=== PATIENT | female | born 1980 | race Caucasian/White ===

== ENCOUNTER → 2016-04-08 | Outpatient (CLI) | payer OTHER ==
[~2016-04-08] MED LIST: ACET-1256 PO; BIOT1CAP8 PO; CEPH500C2 PO; CIPR-255 PO; DOXY100C2 PO; FLV400 PO; LEVO88TA PO; LINA1CAP PO; METR-163 PO; MRLP17 PO; MULT-506 PO; NAPR-1169 PO; OYST500T47 PO; POLY335019 PO; PRENTAB26 PO; PRT40 PO; TIZA4CAP PO; ZNTT/150 PO
[2016-04-08 11:10] LABS: HEMATOCRIT 39.1 % (37-47)
[2016-04-08 12:00] LABS: URINE APPEARANCE CLEAR (CLEAR); URINE BILIRUBIN NEG (NEG); URINE COLOR YELLOW; URINE EPITHELIAL CELL AUTO >30 /lpf (0-5); URINE NITRITE NEG (NEG); URINE SPECIFIC GRAVITY 1.012 (1.000-1.030); UROBILINOGEN NEG (NEG)
[2016-04-08 12:11] LABS: GTGD 50 Grams
[2016-04-08 12:20] LABS: MANUAL MICROSCOPIC REQUIRED? NO; REVIEW REQ? NO
== END | disposition home or self-care (01) ==
LOC: C.LAB1850 09:59
PROVIDERS: ATTEND Obstetrics & Gynecology
DX: O09.523 Supervision of elderly multigravida, third trimester (principal)

== ENCOUNTER 2016-05-04 17:38 | Outpatient (CLI) | payer OTHER ==
[~2016-05-04] VITALS: Ht 154.9 cm; Wt 74.1 kg
[~2016-05-04 17:38] MED LIST changes: -ACET-1256 PO; -CEPH500C2 PO; -CIPR-255 PO; -DOXY100C2 PO; -LEVO88TA PO; -LINA1CAP PO; -METR-163 PO; -MRLP17 PO; -MULT-506 PO; -NAPR-1169 PO; -OYST500T47 PO; -PRENTAB26 PO; -PRT40 PO; -TIZA4CAP PO; -ZNTT/150 PO
[2016-05-04 18:45] VITALS: Ht 154.9 cm; Wt 74.1 kg
[2016-05-04] MEDS ORDERED: BETAMETH SOD PHOS/ACETATE IA 6 MG/ML ONE ×2 (19:05→19:15)
[2016-05-04] MEDS ORDERED: BETAMETH SOD PHOS/ACETATE IA 6 MG/ML IM STA (19:18)
[2016-05-04] MEDS ORDERED: MAGNESIUM SULFATE / WTR 1,000 ML IV ONE ×2 (19:22)
[2016-05-04] MEDS ORDERED: D5W AND LACTATED RINGERS 1,000 ML IV SCH (19:30)
[2016-05-04] MEDS ORDERED: MAGNESIUM SULFATE IV ONE (19:45)
[2016-05-04] MEDS ORDERED: MAGNESIUM SULFATE 40GM / WTR 1000 ML IV SCH (19:45)
[2016-05-04] MEDS ORDERED: WTR IV ONE (19:45)
[2016-05-04] MEDS ORDERED: LACTATED RINGER'S 1000ML 1,000 ML IV SCH (20:00)
[2016-05-04] MEDS ORDERED: AMPICILLIN IV 2,000 MG in SODIUM CHLOR 0.9% AD-VAN 100ML 100 ML IV SCH (20:00)
[2016-05-04] MEDS ORDERED: ERYTHROMYCIN IV 250 MG in SODIUM CHLORIDE 0.9% 250ML 250 ML IV SCH (20:00)
[2016-05-04 20:01] LABS: BASO % 0.2 %; BASO ABS # 0.02 K/uL (0-0.2); COMPLETE YES; EOS % 0.8 %; HEMATOCRIT 38.7 % (37-47); IG% 0.5 %; LYMPH ABS # 2.24 K/uL (1.2-3.4); MEAN CELL VOLUME 88.8 fL (80-100); MEAN CORPUSCULAR HEMOGLOBIN 31.2 pg (25-34); MEAN CORPUSCULAR HGB CONC 35.1 g/dl (32-36); MEAN PLATELET VOLUME 10.2 fL (7.4-10.4); NEUT % 73.5 %; PLATELET COUNT 186 K/uL (130-400); RED BLOOD COUNT 4.36 M/uL (4.2-5.4); WHITE BLOOD COUNT 12.44 K/uL (4.8-10.8)
[2016-05-04 20:27] LABS: CALCIUM 8.9 mg/dl (8.5-10.1); CREATININE 0.75 mg/dl (0.60-1.20); POTASSIUM 3.5 mmol/L (3.5-5.1)
[2016-07-23] MEDS ORDERED: PRENTAB26 PO (00:19)
[2016-07-23] MEDS ORDERED: LEVO88TA PO (00:20)
[2016-12-03] MEDS ORDERED: MULT-506 PO (10:53)
[2016-12-03] MEDS ORDERED: CEPH500C2 PO (10:53)
[2016-12-03] MEDS ORDERED: TIZA4CAP PO (10:53)
== END 2016-05-04 22:10 | disposition short-term general hospital (02) ==
LOC: C.OPB 17:38 → C.LD 17:38 → C.OPB 22:10
PROVIDERS: ATTEND Obstetrics & Gynecology
DX: O62.9 Abnormality of forces of labor, unspecified (principal); O99.283 Endocrine, nutritional and metabolic diseases complicating pregnancy, third trimester; Z3A.32 32 weeks gestation of pregnancy

== ENCOUNTER → 2016-07-02 | Outpatient (CLI) | payer OTHER ==
[~2016-07-02] MED LIST changes: +ACET-1256 PO; +CEPH500C2 PO; +CIPR-255 PO; +DOXY100C2 PO; +LEVO88TA PO; +LINA1CAP PO; +METR-163 PO; +MRLP17 PO; +MULT-506 PO; +NAPR-1169 PO; +OYST500T47 PO; +PRENTAB26 PO; +PRT40 PO; +TIZA4CAP PO; +ZNTT/150 PO
== END | disposition home or self-care (01) ==
LOC: C.LABSPEC 13:13
PROVIDERS: ATTEND Obstetrics & Gynecology
DX: N89.8 Other specified noninflammatory disorders of vagina (principal)

== ENCOUNTER 2016-07-23 14:44 | Emergency (ER) | payer OTHER ==
[~2016-07-23] VITALS: Ht 160 cm; Wt 71.6 kg
[~2016-07-23 14:44] MED LIST changes: -ACET-1256 PO; -CEPH500C2 PO; -CIPR-255 PO; -DOXY100C2 PO; -LINA1CAP PO; -METR-163 PO; -MRLP17 PO; -MULT-506 PO; -NAPR-1169 PO; -OYST500T47 PO; -PRT40 PO; -TIZA4CAP PO; -ZNTT/150 PO
[2016-07-23 14:47] VITALS: Ht 160 cm; Wt 71.6 kg
[2016-07-23] MEDS ORDERED: PIPERACILL/TAZOBAC IV 4.5 GM in DEXTROSE 5% 100ML 100 ML IV STA (15:17)
[2016-07-23] MEDS ORDERED: ACETAMINOPHEN 500 MG TAB PO STA (15:17)
[2016-07-23] MEDS ORDERED: VANCOMYCIN INJ 1,750 MG in SODIUM CHLORIDE 0.9% 250ML 250 ML IV STA (15:17)
[2016-07-23] MEDS ORDERED: SODIUM CHLORIDE 0.9% 1000ML 2,000 ML IV STA (15:17)
[2016-07-23] MEDS ORDERED: OYST500T47 PO (15:22)
[2016-07-23] MEDS ORDERED: VANCOMYCIN INJ 1,750 MG in SODIUM CHLORIDE 0.9% 500ML 500 ML IV STA (15:25)
--- NOTE | 2016-07-23 15:46 | EMERGENCY ROOM VISIT NOTE ---
History First contact with patient: 15:03 Chief Complaint: FEVER Stated Complaint: FEVER, BELLY AND BACK PAIN History of Present Illness The patient is a 35 year old female who presents to the Emergency Room with complaints of fevers, chills, body aches, with abdominal and lower back pain. Patient s/p vaginal delivery 2 months ago, patient states she had premature rupture of membranes at 32 weeks and was kept at [facility] and delivered at 34 weeks. She subsequently developed endometritis and was admitted at [facility] [place] for this. She is history of 2 miscarriages. Patient states she has had persistent abdominal pain with fevers and chills since being discharged, has been on a course of intravaginal antibiotics which she states she completed about 1-2 weeks ago, but is not feeling any better. Over the past few days, she has had increased vaginal bleeding and pain. She was seen at her OBs office today and sent to the ER for further evaluation. She is normally followed by Dr. Tompkins. She has not taken anything today for fevers or pain, but states she has been taking Tylenol at times with minimal relief. She has associated nausea and dizziness/fatigue with this. She denies chest pain, shortness of breath, palpitations, syncope, vomiting or diarrhea, urinary symptoms. She states she has not been sexually active since her delivery. Review of Systems GENERAL: + Fevers, chills, malaise, fatigue. Denies unintentional weight changes. HEENT: + Dizziness. Denies visual problems, hearing loss, tinnitus. Denies difficulty swallowing or oral lesions. PULMONARY: Denies cough, shortness of breath, sputum production or hemoptysis. CARDIOVASCULAR: Denies chest pain, palpitations, dyspnea on exertion, orthopnea or peripheral edema. GASTROINTESTINAL: + Abdominal pain, nausea. Denies diarrhea, constipation, vomiting. GENITOURINARY: Denies dysuria, frequency, urgency or nocturia. + Vaginal bleeding with small clots. NEUROLOGIC: Denies history of epilepsy, CVA, TIA or chronic headaches. MUSCULOSKELETAL: Denies history of joint tenderness/swelling. SKIN: Denies rashes or lesions. PSYCHIATRIC: Denies history of depression or mental illness. ENDOCRINE: Denies history of diabetes, thyroid disorders, abnormal hair growth or sexual dysfunction. Past Medical/Surgical History Medical Problems: (1) CMV (cytomegalovirus infection) (2) (3) premature rupture of membranes (PPROM) with unknown onset of labor (4) Toxoplasmosis Family History Diabetes mellitus Heart disease Hypertension Social History Smoking Status: Never Smoker Marital Status: Housing Status: lives with family Occupation Status: unemployed Current/Historical Medications Scheduled Ciprofloxacin Hcl (Cipro), 500 MG PO BID Levothyroxine Sodium (Synthroid), 88 MCG PO DAILY Metronidazole (Flagyl), 500 MG PO TID Multivit/Min/Iron/Fol Ac/Pren ( Vitamin), 1 TAB PO DAILY Oyster Shell (Calcium), 500 MG PO DAILY Scheduled PRN Naproxen (Naprosyn), 500 MG PO BID PRN for Pain Allergies Coded Allergies: Baclofen (Verified Allergy, Unknown, ITCHING AND RASH, 11/23/15) Carbamazepine (Verified Allergy, Unknown, RASH AND ITCHING, 11/23/15) Physical Exam Vital Signs Date Time Temp Pulse Resp B/P Pulse Ox O2 Delivery O2 Flow Rate FiO2 07/23/16 20:44 36.8 65 15 106/60 96 07/23/16 18:44 65 96 07/23/16 18:16 36.8 96 106/60 07/23/16 18:14 72 95 07/23/16 18:07 106/60 07/23/16 16:26 105/69 07/23/16 16:14 88 15 07/23/16 16:12 79 07/23/16 15:55 88 105/55 96 Room Air 07/23/16 15:52 105/58 07/23/16 14:47 37.7 123 16 124/78 97 Room Air Physical Exam CONSTITUTIONAL: Pale for ethnicity. Moderately dehydrated. No acute distress. Well appearing and well nourished. Alert and oriented X 4 with normal affect. HEENT: Normocephalic, atraumatic. Pupils equal, round and reactive to light, EOMI. TMs normal. Pharynx normal. NECK: Supple, full active range of motion without discomfort. RESPIRATORY: Clear to auscultation bilaterally with no wheezing, crackles, rhonchi or stridor. Equal expansion bilaterally. CARDIOVASCULAR: Tachycardia. Regular rhythm with no murmurs, rubs or gallops. Normal peripheral perfusion. No edema. GASTROINTESTINAL: Moderately tender diffuse abdomen, most tender in the suprapubic region. Soft, nondistended. Bowel sounds present in all quadrants. GENITOURINARY: Normal external exam. There is no active bleeding within the vaginal canal. Moderate clear discharge noted from the cervix. No malodorous or purulent discharge. Cervical os is fingertip open. Cervix appears excoriated. Positive cervical motion tenderness. Diffuse uterine and adnexal tenderness. MUSCULOSKELETAL: Full range of motion of all joints without discomfort. INTEGUMENTARY: No rash or other significant dermatologic conditions noted. NEUROLOGIC: Cranial nerves II-XII grossly intact. No focal neurologic deficits noted. Medical Decision & Procedures ER Provider Diagnostic Interpretation: ABDOMEN AND PELVIS CT WITH IV CONTRAST CT DOSE: 327.11 mGy.cm HISTORY: Fever recent endometritis, fevers, eval intra-abdominal infection TECHNIQUE: Multiaxial CT images of the abdomen and pelvis were performed following the use of intravenous contrast. COMPARISON STUDY: 04/26/2014 FINDINGS: Lung bases are clear. Liver spleen and pancreas are unremarkable. Kidneys enhance uniformly. Bowel pattern is nonobstructive. There has been interval appendectomy. There are bilateral ovarian follicular cysts none of which exceed 1.5 cm. No evidence of bowel distention. IMPRESSION: 1. Interval appendectomy. 2. Nonobstructive bowel pattern. 3. Small bilateral ovarian follicular cysts. Laboratory Results 07/23/16 15:30 Red Blood Count 4.83, Mean Corpuscular Volume 88.4, Mean Corpuscular Hemoglobin 30.6, Mean Corpuscular Hemoglobin Concent 34.7, Mean Platelet Volume 10.4, Neutrophils (%) (Auto) 77.8, Lymphocytes (%) (Auto) 10.1, Monocytes (%) (Auto) 11.3, Eosinophils (%) (Auto) 0.5, Basophils (%) (Auto) 0.1, Neutrophils # (Auto ) 7.81, Lymphocytes # (Auto) 1.02, Monocytes # (Auto) 1.14, Eosinophils # (Auto ) 0.05, Basophils # (Auto) 0.01 07/23/16 15:30 Test 07/23/16 15:30 07/23/16 15:41 07/23/16 15:45 07/23/16 16:10 White Blood Count 10.05 K/uL (4.8-10.8) Red Blood Count 4.83 M/uL (4.2-5.4) Hemoglobin 14.8 g/dL (12.0-16.0) Hematocrit 42.7 % (37-47) Mean Corpuscular Volume 88.4 fL (80-100) Mean Corpuscular Hemoglobin 30.6 pg (25-34) Mean Corpuscular Hemoglobin Concent 34.7 g/dl (32-36) Platelet Count 223 K/uL (130-400) Mean Platelet Volume 10.4 fL (7.4-10.4) Neutrophils (%) (Auto) 77.8 % Lymphocytes (%) (Auto) 10.1 % Monocytes (%) (Auto) 11.3 % Eosinophils (%) (Auto) 0.5 % Basophils (%) (Auto) 0.1 % Neutrophils # (Auto) 7.81 K/uL (1.4-6.5) Lymphocytes # (Auto) 1.02 K/uL (1.2-3.4) Monocytes # (Auto) 1.14 K/uL (0.11-0.59) Eosinophils # (Auto) 0.05 K/uL (0-0.5) Basophils # (Auto) 0.01 K/uL (0-0.2) RDW Standard Deviation 39.7 fL (36.4-46.3) RDW Coefficient of Variation 12.4 % (11.5-14.5) Immature Granulocyte % (Auto) 0.2 % Immature Granulocyte # (Auto) 0.02 K/uL (0.00-0.02) Est Creatinine Clear Calc Drug Dose 88.0 ml/min Estimated GFR () 104.4 Estimated GFR (Non- 90.1 BUN/Creatinine Ratio 23.2 (10-20) Calcium Level 9.2 mg/dl (8.5-10.1) Total Bilirubin 0.9 mg/dl (0.2-1) Direct Bilirubin 0.2 mg/dl (0-0.2) Aspartate Amino Transf (AST/SGOT) 29 U/L (15-37) Alanine Aminotransferase (ALT/SGPT) 46 U/L (12-78) Alkaline Phosphatase 66 U/L (45-117) Total Protein 7.5 gm/dl (6.4-8.2) Albumin 4.1 gm/dl (3.4-5.0) Bedside Lactic Acid Venous 0.93 mmol/L (0.90-1.70) Bedside Hemoglobin 15.0 g/dl (12.0-16.0) Bedside Hematocrit 44 % (37-47) Bedside Sodium 140 mEq/L (135-144) Bedside Potassium 3.8 mEq/L (3.3-5.0) Bedside Chloride 102 mEq/L (101-112) Bedside Total CO2 25 mEq/l (24-31) Anion Gap 19.0 mmol/L (16-25) Bedside Blood Urea Nitrogen 20 mg/dl (7-18) Bedside Creatinine 0.8 mg/dl (0.6-1.3) Bedside Glucose (other) 96 mg/dl (70-99) Bedside Ionized Calcium ([place]) 1.09 mmol/l (1.12-1.32) Test 07/23/16 16:15 07/23/16 16:37 Urine Color YELLOW Urine Appearance CLEAR (CLEAR) Urine pH 6.0 (4.5-7.5) Urine Specific [place] 1.015 (1.000-1.030) Urine Protein NEG (NEG) Urine Glucose (UA) NEG (NEG) Urine Ketones NEG (NEG) Urine Occult Blood TRACE (NEG) Urine Nitrite NEG (NEG) Urine Bilirubin NEG (NEG) Urine Urobilinogen NEG (NEG) Urine Leukocyte Esterase NEG (NEG) Prothrombin Time 10.6 SECONDS (9.0-12.0) Prothromb Time International Ratio 1.0 (0.9-1.1) Activated Partial Thromboplast Time 25.4 SECONDS (21.0-31.0) Partial Thromboplastin Ratio 1.0 Medications Administered Medications (Trade) Dose Ordered Sig/Kaur Route Start Time Stop Time Status Last Admin Dose Admin Sodium Chloride 2,000 ml @ 999 mls/hr Q2H1M STAT IV 07/23/16 15:17 07/23/16 17:17 DC 07/23/16 15:17 999 MLS/HR Piperacillin Sod/ Tazobactam Sod/ Dextrose (Zosyn Iv/D5 100ml) 120 ml @ 200 mls/hr NOW STAT IV 07/23/16 15:17 07/23/16 15:52 DC 07/23/16 15:17 200 MLS/HR Acetaminophen 1000 mg 1,000 mg NOW STAT PO 07/23/16 15:17 07/23/16 15:23 DC 07/23/16 15:17 1,000 MG Vancomycin HCl/ Sodium Chloride (Vancomycin Inj/ Nss 500ml) 535 ml @ 200 mls/hr ONE STAT IV 07/23/16 15:25 07/23/16 18:05 DC 07/23/16 15:25 200 MLS/HR Ketorolac Tromethamine (Toradol Inj) 15 mg NOW STAT IV 07/23/16 18:47 07/23/16 18:49 DC 07/23/16 18:47 15 MG ED Course Patient evaluated at bedside, history and physical exam performed. Orders placed at bedside for infection workup including labs, urinalysis, blood and urine cultures, IV fluid bolus, IV vancomycin and Zosyn for broad coverage given suspected infection. I discussed the patient with Dr. Hutchison, who agrees with my assessment and plan. Pelvic exam performed and endocervical cultures sent to the lab. Spoke with Dr. Morales, who agrees with plan to treat for possible persistent endometritis, recommends Cipro/Flagyl and will follow up in clinic early next week. CT reviewed, no acute abnormality. Pt reassessed, states she is feeling much better after Toradol. Medical Decision CC: Patient presenting with complaint of fever/chills, abdominal pain. Interpretation of Labs: No significant abnormalities, most notably no leukocytosis and normal lactic acid. Differential Diagnosis: Includes, but not limited to endometritis, intra- abdominal infection or abscess, sepsis, bacteremia, UTI, PID. Summary: Patient is alert and oriented, no acute distress but appears uncomfortable and unwell. She has moderate diffuse tenderness of the abdomen most tender over the uterus. Given her history of recent endometritis, I am concerned for recurrence or poor resolution of this infection. Infection workup initiated and broad-spectrum IV antibiotics ordered. Pelvic exam with exquisite cervical motion tenderness and cervical excoriation, os is open to fingertip with only. No malodorous or purulent discharge. Endocervical culture sent including aerobic, anaerobic, chlamydia, gonorrhea, trichomoniasis. Blood and urine cultures also sent. Labs are fairly unremarkable, previous mild leukocytosis is now resolved. CT shows no acute abnormalities. I did speak with Dr. Morales regarding the patient, she recommends treating for possible persistent endometritis with Cipro and Flagyl, will follow up in clinic. Patient reassessed multiple times throughout ED stay, she is much improved after IV fluids and Toradol. Tachycardia is also resolved after fluids. Patient was discussed with Dr. Hutchison, who agrees with my assessment and disposition. Impression Primary Impression: Pelvic pain Departure Information Dispostion Home / Self-Care Condition GOOD Prescriptions Naproxen (Naprosyn) 500 Mg Tab 500 MG PO BID Y for Pain for 14 Days, #28 TAB Prov: Avril Medellin MERRITT 07/23/16 Metronidazole (Flagyl) 500 Mg Tab 500 MG PO TID for Pain for 7 Days, #21 TAB For Initial Treatment Prov: Avril MedellinMERRITT Ngo 07/23/16 Ciprofloxacin Hcl (CIPRO) 500 Mg Tab 500 MG PO BID for 7 Days, #14 TAB Prov: Avril Medellin, MERRITT 07/23/16 Referrals [facility] (PCP) Patient Instructions ED Endometritis Obstetric, [facility] Additional Instructions Please follow-up with your OB office in the next few days. Call tomorrow morning to schedule an appointment. Take the antibiotics as prescribed. Take the Naprosyn twice a day as needed for pain. These prescriptions were sent to the [facility] pharamacy for you. You may use a heating pad to your abdomen for comfort. Do not breast feed your baby while you are taking the antibiotics. You should solely feed with the formula you have been using. Talk to you accountant budget about any feeding questions. Use your breast pump to continue pumping your breast milk so your supply does not dry up. Please return to the ER for worsening symptoms, including severe pain, persistent heavy bleeding (soaking through 2 or more pads/tampons per hour), fever/chills, severe dizziness or passing out, or any other concerns.
--- NOTE | 2016-07-23 15:51 | DIAGNOSTIC IMAGING REPORT ---
CHEST ONE VIEW PORTABLE CLINICAL HISTORY: Fever. Sepsis. COMPARISON STUDY: Chest radiograph 07/03/2015. FINDINGS: Lung volumes are normal. Lungs are clear. There is no pneumothorax or pleural effusion. Cardiac size is normal. Mediastinal contours are normal. There is no evidence of pulmonary edema. IMPRESSION: No acute cardiopulmonary findings. Electronically signed by: Walt You M.D. 07/23/2016 3:50 PM Dictated Date/Time: 07/23/2016 3:49 PM
[2016-07-23 15:53] LABS: BASO % 0.1 %; BASO ABS # 0.01 K/uL (0-0.2); COMPLETE YES; EOS % 0.5 %; HEMATOCRIT 42.7 % (37-47); IG% 0.2 %; LYMPH % 10.1 %; LYMPH ABS # 1.02 K/uL (1.2-3.4); MEAN CELL VOLUME 88.4 fL (80-100); MEAN CORPUSCULAR HEMOGLOBIN 30.6 pg (25-34); MEAN CORPUSCULAR HGB CONC 34.7 g/dl (32-36); MEAN PLATELET VOLUME 10.4 fL (7.4-10.4); MONO % 11.3 %; NEUT % 77.8 %; PLATELET COUNT 223 K/uL (130-400); RED BLOOD COUNT 4.83 M/uL (4.2-5.4); WHITE BLOOD COUNT 10.05 K/uL (4.8-10.8)
[2016-07-23 16:03] LABS: ISTAT CREATININE 0.8 mg/dl (0.6-1.3); ISTAT IONIZED CALCIUM 1.09 mmol/l (1.12-1.32)
[2016-07-23 16:13] LABS: BUN/CREATININE RATIO 23.2 (10-20); CALCIUM 9.2 mg/dl (8.5-10.1); CREATININE 0.83 mg/dl (0.60-1.20); POTASSIUM 3.7 mmol/L (3.5-5.1)
[2016-07-23] MEDS ORDERED: OPTIRAY 320 IV PRN (16:30)
[2016-07-23 16:56] LABS: URINE APPEARANCE CLEAR (CLEAR); URINE BILIRUBIN NEG (NEG); URINE NITRITE NEG (NEG); URINE SPECIFIC GRAVITY 1.015 (1.000-1.030); UROBILINOGEN NEG (NEG)
[2016-07-23 17:05] LABS: REVIEW REQ? NO
[2016-07-23 17:06] LABS: MANUAL MICROSCOPIC REQUIRED? NO; URINE COLOR YELLOW
[2016-07-23 17:07] LABS: PROTHROMBIN TIME (PATIENT) 10.6 SECONDS (9.0-12.0)
--- NOTE | 2016-07-23 17:17 | DIAGNOSTIC IMAGING REPORT ---
ABDOMEN AND PELVIS CT WITH IV CONTRAST CT DOSE: 327.11 mGy.cm HISTORY: Fever recent endometritis, fevers, eval intra-abdominal infection TECHNIQUE: Multiaxial CT images of the abdomen and pelvis were performed following the use of intravenous contrast. COMPARISON STUDY: 04/26/2014 FINDINGS: Lung bases are clear. Liver spleen and pancreas are unremarkable. Kidneys enhance uniformly. Bowel pattern is nonobstructive. There has been interval appendectomy. There are bilateral ovarian follicular cysts none of which exceed 1.5 cm. No evidence of bowel distention. IMPRESSION: 1. Interval appendectomy. 2. Nonobstructive bowel pattern. 3. Small bilateral ovarian follicular cysts. Electronically signed by: Geovani Sanchez M.D. 07/23/2016 5:16 PM Dictated Date/Time: 07/23/2016 5:11 PM
[2016-07-23] MEDS ORDERED: KETOROLAC TROMETHAMINE 30 MG/ML VIAL IV STA (18:47)
[2016-07-23] MEDS ORDERED: NAPR-1169 PO (19:52)
[2016-07-23] MEDS ORDERED: METR-163 PO (19:52)
[2016-07-23] MEDS ORDERED: CIPR-255 PO (19:52)
[2016-07-23 20:44] VITALS: BP 106/60; PULSE 65; TEMP 36.8; O2SAT 96
[2016-07-28 04:25] LABS: CHLAMYDIA TRACH RNA*** NOT DETECTED (NOT DETECTED); GC (NEIS GONORRHOEAE)RNA** NOT DETECTED (NOT DETECTED); TRICHOMONAS VAGINALIS RNA** NOT DETECTED (NOT DETECTED)
[2016-12-03] MEDS ORDERED: CEPH500C2 PO (10:53)
[2016-12-03] MEDS ORDERED: MULT-506 PO (10:53)
[2016-12-03] MEDS ORDERED: TIZA4CAP PO (10:53)
== END 2016-07-23 20:45 | disposition home or self-care (01) ==
LOC: C.EDB 14:45
DX: R10.2 Pelvic and perineal pain (principal); Z86.19 Personal history of other infectious and parasitic diseases; Z79.899 Other long term (current) drug therapy; Z88.8 Allergy status to other drugs, medicaments and biological substances; Z83.3 Family history of diabetes mellitus; Z82.49 Family history of ischemic heart disease and other diseases of the circulatory system

== ENCOUNTER 2016-07-28 00:03 | Observation (INO) | payer OTHER ==
[2016-07-28] VITALS (7 sets, daily range): BP systolic 84–155; BP diastolic 41–68; PULSE 55–64; TEMP 36.5–36.8; O2SAT 96–98; Ht 160 cm; Wt 72.0 kg
[~2016-07-28] VITALS: Ht 160 cm; Wt 72.0 kg
[~2016-07-28 00:03] MED LIST changes: -BIOT1CAP8 PO; +CIPR-255 PO; -FLV400 PO; +METR-163 PO; +NAPR-1169 PO; +OYST500T47 PO; -POLY335019 PO
[2016-07-28] MEDS ORDERED: SODIUM CHLORIDE 0.9% 1000ML 1,000 ML IV STA ×2 (00:24→04:36)
--- NOTE | 2016-07-28 00:29 | EMERGENCY ROOM VISIT NOTE ---
History Report prepared by Ciera: Mg Tavares Under the Supervision of: Dr. Jonah Randolph M.D. First contact with patient: 00:17 Chief Complaint: ABDOMINAL PAIN Stated Complaint: CHILLS, NAUSEA, ABD PAIN History of Present Illness The patient is a 35 year old female who presents to the Emergency Room with complaints of worsening pelvic pain for the past two weeks. The patient delivered her first child vaginally two months ago P:1. She spent two weeks in the hospital prior to the delivery. The patient was diagnosed with endometritis two weeks ago. She is being treated with Cipro, Flagyl, and Doxycycline. She is also taking Tylenol for pain. She has had worsening pelvic pain since then. The patient also had vaginal bleeding, which initially resolved but started again yesterday. The pelvic pain is rated 10/10 in severity and does not radiate to her back. The patient also complains of chills and nausea. She denies fevers, chest pain, shortness of breath, vomiting, diarrhea, leg swelling, or rashes. She has not been eating well. The patient was seen by the [facility] earlier today where she had a pelvic examination. Source of History: patient Onset: two weeks ago Position: other (pelvic) Symptom Intensity: 10/10 Timing: worsening Associated Symptoms: + chills, + nausea, No SOB, No back pain, No chest pain , No diarrhea, No fevers, No rash, No vomiting Review of Systems See HPI for pertinent positives & negatives. A total of 10 systems reviewed and were otherwise negative. Past Medical & Surgical Medical Problems: (1) CMV (cytomegalovirus infection) (2) (3) premature rupture of membranes (PPROM) with unknown onset of labor (4) Toxoplasmosis Family History Diabetes mellitus Heart disease Hypertension Social History Smoking Status: Never Smoker Marital Status: Housing Status: lives with family Occupation Status: unemployed Current/Historical Medications Scheduled Ciprofloxacin Hcl (Cipro), 500 MG PO BID Doxycycline Hyclate (Vibramycin), 100 MG PO BID Levothyroxine Sodium (Synthroid), 88 MCG PO DAILY Metronidazole (Flagyl), 500 MG PO TID Multivit/Min/Iron/Fol Ac/Pren ( Vitamin), 1 TAB PO DAILY Oyster Shell (Calcium), 500 MG PO DAILY Scheduled PRN Acetaminophen (Tylenol), 1,000 MG PO Q4 PRN for Pain or Fever Naproxen (Naprosyn), 500 MG PO BID PRN for Pain Ranitidine (Zantac), 150 MG PO BID PRN for Nausea Allergies Coded Allergies: Baclofen (Verified Allergy, Unknown, ITCHING AND RASH, 07/28/16) Carbamazepine (Verified Allergy, Unknown, RASH AND ITCHING, 07/28/16) Physical Exam Vital Signs Date Time Temp Pulse Resp B/P Pulse Ox O2 Delivery O2 Flow Rate FiO2 07/28/16 06:03 66 16 108/57 97 Room Air 07/28/16 03:32 86 18 107/63 97 Room Air 07/28/16 02:56 61 20 114/56 96 Room Air 07/28/16 01:00 66 18 101/64 98 Room Air 07/28/16 00:08 36.6 65 18 116/73 98 Room Air Physical Exam GENERAL: Patient is uncomfortable appearing and in moderate distress. HEENT: No acute trauma, normocephalic atraumatic, mucous membranes are dry, no nasal congestion, no scleral icterus. NECK: No stridor, no adenopathy, no meningismus, trachea is midline. LUNGS: No dyspnea. Clear to auscultation and equal bilaterally. No wheeze, no rhonchi. HEART: Regular rate and rhythm. No murmurs, rubs, gallops appreciated. ABDOMEN: Soft, tender to palpation over the suprapubic and adnexal regions, bowel sounds positive, no masses appreciated, no peritonitis. BACK: No midline tenderness, no CVA tenderness EXTREMITIES: Normal motion all extremities, no cyanosis, no edema. NEUROLOGIC: Alert and oriented, no acute motor or sensory deficits, no focal weakness, cranial nerves grossly intact. SKIN: No rash, no jaundice, no diaphoresis. Medical Decision & Procedures ER Provider Diagnostic Interpretation: Radiology results and stated below per my review and radiologist interpretation: CT ABDOMEN & PELVIS: Comparison to CT A&P 04/26/14. Clear lung bases. Liver, gallbladder, pancreas, adrenals, and kidneys within normal limits. Stable appearance of spleen with adjacent splenules. Aorta and IVC normal. S/p appendectomy. No evidence of bowel obstruction. Small bilateral adnexal cysts. Normal appearance of the uterus and urinary bladder. No significant free pelvic fluid. No acute osseous findings. Radiologist: Ricki Shetty MD. Laboratory Results 07/28/16 00:45 Red Blood Count 4.62, Mean Corpuscular Volume 87.7, Mean Corpuscular Hemoglobin 29.9, Mean Corpuscular Hemoglobin Concent 34.1, Mean Platelet Volume 9.9, Neutrophils (%) (Auto) 60.9, Lymphocytes (%) (Auto) 28.4, Monocytes (%) (Auto) 8.1, Eosinophils (%) (Auto) 2.2, Basophils (%) (Auto) 0.3, Neutrophils # (Auto) 5.28, Lymphocytes # (Auto) 2.46, Monocytes # (Auto) 0.70, Eosinophils # (Auto) 0.19, Basophils # (Auto) 0.03 07/28/16 00:45 Test 07/28/16 00:45 07/28/16 00:51 07/28/16 01:27 White Blood Count 8.67 K/uL (4.8-10.8) Red Blood Count 4.62 M/uL (4.2-5.4) Hemoglobin 13.8 g/dL (12.0-16.0) Hematocrit 40.5 % (37-47) Mean Corpuscular Volume 87.7 fL (80-100) Mean Corpuscular Hemoglobin 29.9 pg (25-34) Mean Corpuscular Hemoglobin Concent 34.1 g/dl (32-36) Platelet Count 248 K/uL (130-400) Mean Platelet Volume 9.9 fL (7.4-10.4) Neutrophils (%) (Auto) 60.9 % Lymphocytes (%) (Auto) 28.4 % Monocytes (%) (Auto) 8.1 % Eosinophils (%) (Auto) 2.2 % Basophils (%) (Auto) 0.3 % Neutrophils # (Auto) 5.28 K/uL (1.4-6.5) Lymphocytes # (Auto) 2.46 K/uL (1.2-3.4) Monocytes # (Auto) 0.70 K/uL (0.11-0.59) Eosinophils # (Auto) 0.19 K/uL (0-0.5) Basophils # (Auto) 0.03 K/uL (0-0.2) RDW Standard Deviation 39.9 fL (36.4-46.3) RDW Coefficient of Variation 12.5 % (11.5-14.5) Immature Granulocyte % (Auto) 0.1 % Immature Granulocyte # (Auto) 0.01 K/uL (0.00-0.02) Erythrocyte Sedimentation Rate 12 mm/hr (0-21) Anion Gap 8.0 mmol/L (3-11) Est Creatinine Clear Calc Drug Dose 61.2 ml/min Estimated GFR () 66.9 Estimated GFR (Non- 57.7 BUN/Creatinine Ratio 16.3 (10-20) Calcium Level 8.8 mg/dl (8.5-10.1) C-Reactive Protein 1.38 mg/dl (0-0.29) Thyroid Stimulating Hormone (TSH) 1.800 uIu/ml (0.300-4.500) Free Thyroxine 1.28 ng/dl (0.80-1.60) Human Chorionic Gonadotropin, Qual NEG (NEG) Bedside Lactic Acid Venous 0.51 mmol/L (0.90-1.70) Urine Color YELLOW Urine Appearance CLEAR (CLEAR) Urine pH 5.0 (4.5-7.5) Urine Specific [place] 1.007 (1.000-1.030) Urine Protein NEG (NEG) Urine Glucose (UA) NEG (NEG) Urine Ketones NEG (NEG) Urine Occult Blood NEG (NEG) Urine Nitrite NEG (NEG) Urine Bilirubin NEG (NEG) Urine Urobilinogen NEG (NEG) Urine Leukocyte Esterase NEG (NEG) Urine WBC (Auto) 0 /hpf (0-5) Urine RBC (Auto) 0-4 /hpf (0-4) Urine Hyaline Casts (Auto) 0 /lpf (0-5) Urine Epithelial Cells (Auto) 0-5 /lpf (0-5) Urine Bacteria (Auto) NEG (NEG) Urine Test NEG (NEG) Laboratory results as reviewed by me. Medications Administered Medications (Trade) Dose Ordered Sig/Kaur Route Start Time Stop Time Status Last Admin Dose Admin Sodium Chloride (Nss 1000ml) 1,000 ml @ 999 mls/hr Q1H1M STAT IV 07/28/16 00:24 07/28/16 01:24 DC 07/28/16 00:57 999 MLS/HR Ondansetron HCl (Zofran Inj) 4 mg NOW STAT IV 07/28/16 00:41 07/28/16 00:42 DC 07/28/16 00:57 4 MG Morphine Sulfate (MoRPHine SULFATE INJ) 4 mg STK-MED ONCE .ROUTE 07/28/16 00:50 07/28/16 00:51 DC 07/28/16 00:58 4 MG Morphine Sulfate (MoRPHine SULFATE INJ) 2 mg STK-MED ONCE .ROUTE 07/28/16 00:50 07/28/16 00:51 DC 07/28/16 00:59 2 MG Ondansetron HCl (ZOFRAN ODT 4MG Home Pack) 1 homepack UD ONCE PO 07/28/16 03:15 07/28/16 03:16 DC 07/28/16 03:31 1 HOMEPACK Lorazepam (Ativan Tab) 1 mg NOW STAT SL 07/28/16 04:12 07/28/16 04:13 DC 07/28/16 04:18 1 MG Prochlorperazine Edisylate (Compazine Inj) 10 mg NOW STAT IV 07/28/16 04:36 07/28/16 04:38 DC 07/28/16 05:32 10 MG Diphenhydramine HCl 50 mg 50 mg NOW STAT IV 07/28/16 04:36 07/28/16 04:38 DC 07/28/16 05:35 50 MG Sodium Chloride (Nss 1000ml) 1,000 ml @ 999 mls/hr Q1H1M STAT IV 07/28/16 04:36 07/28/16 05:36 DC 07/28/16 05:37 999 MLS/HR ED Course 0020: The patient was evaluated in room B7. A complete history and physical exam was performed. 0024: NSS 1000 ml @ 999 mls/hr. 0041: Zofran 4 mg IV, Morphine Sulfate 6 mg IV. 0144: Discussed the case with Dr. Quintanilla, Business Analysis Specialist. The patient will be evaluated in the ED. 0300: Dr Jeni Quintanilla feels that there is no evidence of endometritis. He does not feel that she needs inpatient admission nor to be on the antibiotics. The patient requested morphine and extensive endocrine testing which we are unable to do in the ED. 0315: Oxycodone HCl IR 5 mg PO homepack, Zofran Odt 4 mg PO homepack. 0412: Ativan 1 mg SL. 0436: NSS 1000 ml @ 999 mls/hr, Benadryl 50 mg IV, Compazine 10 mg IV. 0437: The patient refuses to leave the ED. She is dry heaving and spitting up saliva. She is demanding more pain medications. I discussed further workup and she would like another CT scan of her abdomen. 0530: Nursing is still attempting to establish a new IV. 0615: The patient is at CT scan. 0645: Discussed the case with the [facility]. The patient will be evaluated. 0650: Patient states that she is still having abdominal pain, however she is somnolent and has to be awoken from sleep. Medical Decision Differential: Appendicitis, Ovarian Torsion, PID, Tubo-ovarian Abscess, Intrauterine , Ectopic , Endometriosis, amongst other pathologies entertained. 35 yr old female with vaginal delivery 11 wks ago and post endometritis who was seen 5 days ago here for concern of endometritis. She arrives today stating she wishes inpatient treatment and IV abx. She does not feel PO abx work for her. Admits lower abdo pain had initially improved but worsened over last 24 hours. Seen by [facility] earlier in day and added doxy to Cipro/Flagyl she is already on. She did have vaginal cx last week with + Ecoli which was susceptible to cipro. She refused pelvic exam by me. She has vague suprapubic TTP. Pain/Nausea meds given her reported symptoms though exam benign. Labs ordered which are essentially normal. She has normal WBC, normal ESR, and faintly positive (non-specific) CRP. She is not febrile, vitals are normal and she is stable for several hours. [facility] down to evaluate and feel no emergent gynecological issue and that she is in no need of inpatient treatment from there standpoint. Furthermore they suggest stopping all abx as they may be causing her symptoms. Would not be unreasonable to be flagyl causing her to feel so ill. Patient placed for discharge though she is not very happy with me nor [facility] that we will not admit her. Began forceable dry heaving when told she was to be discharged, drank soda rapidly and then vomited it up immediately. Given Zofran /Ativan and still saying nauseous and no better. Given change in symptoms we opted for placing another IV, given Comp/Benadryl for nausea and will repeat CT scan. CT scan shows no change from just a few days ago. Patient still saying nauseous and pain though she had to be awoken to even tell me this and is clearly in no distress. I can find no acute cause of her symptoms. I made it clear to her that I feel she would be able to go home, but she states she is unable to do this. Consults Time Called: 129 Consulting Physician: Dr. Quintanilla, Business Analysis Specialist Returned Call: [phone] The patient will be evaluated in the ED. Additional Consults: Time Called: [phone] Consulted Physician: [facility] Returned Call: [phone] Additional Comments: The patient will be evaluated. Impression Primary Impression: Pelvic pain Additional Impressions: Nausea Fatigue Scribe Attestation The scribe's documentation has been prepared under my direction and personally reviewed by me in its entirety. I confirm that the note above accurately reflects all work, treatment, procedures, and medical decision making performed by me. Departure Information Dispostion Being Evaluated By Hospitalist Referrals [facility] (PCP) Forms Call Back Authorization, HOME CARE DOCUMENTATION FORM, IMPORTANT VISIT INFORMATION Patient Instructions My [facility] Additional Instructions Please follow up with [facility] for further examination. You can discuss with them having endocrine testing along with other investigations, or possibly even setting up further appointments with [facility]. If you feel you are at risk of harming yourself or others, call 911 or return to emergency department. welt stitch cleaner Feels that you should stop all of your antibiotics. It is possible you are feeling ill because of these medications. Return if fevers, vomiting, passing out, severe pain or other concerns. You have been examined and treated today on an emergency basis only. This is not a substitute for, or an effort to provide, complete comprehensive medical care. It is impossible to recognize and treat all injuries or illnesses in a single emergency department visit. It is therefore important that you follow up closely with your Primary Physician or [facility]. Call as soon as possible for an appointment so you can review all labs, imaging and other testing that you had. Return to Emergency Department, call 911 or seek immediate medical attention if you feel your symptoms are worsening. Problem Qualifiers Additional Impressions: Fatigue Fatigue type: unspecified Qualified Codes: R53.83 - Other fatigue
[2016-07-28] MEDS ORDERED: MoRPHine SULFATE 10 MG/ML CARP/VIAL IV STA (00:41)
[2016-07-28] MEDS ORDERED: ONDANSETRON INJ 2 MG/ML 2 ML VIAL IV STA (00:41)
[2016-07-28] MEDS ORDERED: MoRPHine SULFATE 2 MG/ML CARP ONE (00:50)
[2016-07-28] MEDS ORDERED: MoRPHine SULFATE 4 MG/ML 1 ML CARP\\VIAL ONE (00:50)
[2016-07-28] MEDS ORDERED: DOXY100C2 PO (00:58)
[2016-07-28] MEDS ORDERED: ZNTT/150 PO (00:59)
[2016-07-28] MEDS ORDERED: ACET-1256 PO (00:59)
[2016-07-28 01:00] LABS: BASO % 0.3 %; BASO ABS # 0.03 K/uL (0-0.2); COMPLETE YES; EOS % 2.2 %; HEMATOCRIT 40.5 % (37-47); IG% 0.1 %; LYMPH % 28.4 %; LYMPH ABS # 2.46 K/uL (1.2-3.4); MEAN CELL VOLUME 87.7 fL (80-100); MEAN CORPUSCULAR HEMOGLOBIN 29.9 pg (25-34); MEAN CORPUSCULAR HGB CONC 34.1 g/dl (32-36); MEAN PLATELET VOLUME 9.9 fL (7.4-10.4); MONO % 8.1 %; NEUT % 60.9 %; PLATELET COUNT 248 K/uL (130-400); RED BLOOD COUNT 4.62 M/uL (4.2-5.4); WHITE BLOOD COUNT 8.67 K/uL (4.8-10.8)
[2016-07-28 01:17] LABS: BUN/CREATININE RATIO 16.3 (10-20); C-REACTIVE PROTEIN 1.38 mg/dl (0-0.29); CALCIUM 8.8 mg/dl (8.5-10.1); CREATININE 1.2 mg/dl (0.60-1.20)
[2016-07-28 01:45] LABS: PREG INTERNAL NEGATIVE QC NEG CLEAR BACKGROUND; PREG INTERNAL POSITIVE QC POS CONTROL LINE
[2016-07-28 01:51] LABS: URINE APPEARANCE CLEAR (CLEAR); URINE BILIRUBIN NEG (NEG); URINE COLOR YELLOW; URINE EPITHELIAL CELL AUTO 0-5 /lpf (0-5); URINE NITRITE NEG (NEG); URINE SPECIFIC GRAVITY 1.007 (1.000-1.030); UROBILINOGEN NEG (NEG); ZZUR CULT IF INDIC CLEAN CATCH NO
[2016-07-28 01:53] LABS: MANUAL MICROSCOPIC REQUIRED? NO; REVIEW REQ? NO
[2016-07-28] MEDS ORDERED: OXYCODONE IR HOME PACK PO ONE (03:15)
[2016-07-28] MEDS ORDERED: ONDANSETRON HOME PACK 4MG OD TAB PO ONE (03:15)
[2016-07-28] MEDS ORDERED: LORAZEPAM 1 MG TAB SL STA (04:12)
--- NOTE | 2016-07-28 04:30 | GYNECOLOGICAL CONSULTATION ---
DATE OF CONSULTATION: 07/28/2016 REQUESTING PHYSICIAN: Dr. Randolph in the Emergency Room. INDICATIONS: Nausea, lower abdominal pain and chills. HISTORY OF PRESENT ILLNESS: The patient is a 35-year-old 6, para 4, AB 2 status post a 34-week delivery in April at the [facility] who presented to the Emergency Room for evaluation of chills, nausea and abdominal pain. The patient had a vaginal delivery after 2 weeks of premature rupture of membranes. Three days after discharge from the hospital, she was readmitted at [facility] with an elevated temperature and white count of 14,000 and was treated with IV antibiotics for presumed endometritis. She was discharged home and after the baby was discharged from [facility], she came back to the [facility]. The patient states for the last 8 weeks she has had intermittent abdominal pain and continued vaginal bleeding. She presented acutely to our office as an outpatient on 23 July with the same complaints as today. Physical examination in the office was suspicious for endometritis and she was sent to the Emergency Room. She had an extensive workup in the Emergency Room which included a CAT scan as well as pelvic cultures and laboratory values. On 23 July, she had a white count of 10,000 with no documented fever. She had a CAT scan which was unremarkable and she was treated again for presumed endometritis with p.o. Cipro and Flagyl. The patient was seen acutely in the office on 27 July saying that she was not any better and a third antibiotic doxycycline was empirically ablated. The patient presents to the Emergency Room tonight saying that she does not feel good, that she has chills and she cannot get warm and she has lower abdominal pain. She denies any fever at home. Review of laboratory values from the Emergency Room visit on 23 July showed a vaginal culture growing out E. coli greater than 100,000. Dr. Randolph has asked me to see the patient for examination. PHYSICAL EXAMINATION: GENERAL: Shows a pleasant female, somewhat somnolent but in no acute distress. VITAL SIGNS: Her blood pressure of 114/56, a temperature 36.6 and a pulse of 61. ABDOMEN: Soft. No tenderness. No rebound, no guarding, no organomegaly. Positive bowel sounds. PELVIC: Shows normal external genitalia. Vaginal vault is pink and rugated. The cervical os is multiparous and closed. Bimanual examination shows a posterior mobile uterus. There is no cervical motion tenderness. There is no uterine tenderness. The adnexa show no palpable masses. EXTREMITIES: Shows no deep calf tenderness. LABORATORY VALUES: Show a white count of 8.6 and a sed rate of 12. Chemistries are within normal values. IMPRESSION: A 35-year-old 6, para 4, 2 complaining of chills, lower abdominal pain and nausea. PLAN: To my physical examination, the patient has no cervical motion tenderness and almost 12 weeks , I seriously doubt endometritis. I am wondering whether or not some of the patient's nausea and lower abdominal pain may be from all the antibiotics she is taking. In addition, at this point, I really questioned the diagnosis of endometritis. I cannot explain her feeling of chills, but she has no fever and she has no white count. If the patient was having such a systemic endomyometritis that was causing the symptoms, I would expect some kind of fever and some kind of a white count. At this point, I recommend discontinuing all antibiotics. I do not believe this is gynecological in nature. I explained this to the patient along in the presence of Dr. Randolph and suggested that the patient follow up with her outpatient providers at the [facility]. All questions answered of the patient. Prior to discharge, the patient is requesting morphine IV. There is no indication for any type of narcotics. I believe Tylenol and Motrin are the most appropriate pain medications.
[2016-07-28] MEDS ORDERED: DiphenhydrAMINE HCL 50 MG/ML VIAL IV STA (04:36)
[2016-07-28] MEDS ORDERED: PROCHLORPERAZINE 5 MG/ML 2 ML VIAL IV STA (04:36)
[2016-07-28 05:03] LABS: THYROID STIMULATING HORMONE 1.8 uIu/ml (0.300-4.500)
[2016-07-28] MEDS ORDERED: OPTIRAY 320 IV PRN (05:15)
[2016-07-28] MEDS ORDERED: METRONIDAZOLE / NSS 500 MG in PREMIXED NSS 100 ML IV SCH (09:00)
[2016-07-28] MEDS ORDERED: ONDANSETRON INJ 2 MG/ML 2 ML VIAL IV PRN (09:00)
[2016-07-28] MEDS ORDERED: ACETAMINOPHEN 325 MG TAB PO PRN (09:00)
[2016-07-28] MEDS ORDERED: MoRPHine SULFATE 2 MG/ML CARP IV PRN (09:00)
[2016-07-28] MEDS ORDERED: POLYETHYLENE (MIRALAX) 17 GM PACK PO SCH ×2 (09:00→23:15)
[2016-07-28] MEDS ORDERED: RANITIDINE HCL 150 MG TAB PO PRN (09:00)
--- NOTE | 2016-07-28 09:27 | History and Physical ---
History & Physical Date & Time of Service: July 28, 2016 at 09:06 Chief Complaint: Chills, Nausea, Abd Pain Primary Care Physician: [facility] History of Present Illness Source: patient, clinic records, hospital records This patient is a 35-year-old female, miscarriage 2, that presents the emergency department complaining of lower abdominal discomfort, nausea, vomiting and chills. The patient is primarily mohawk speaking. She declined using a translation service. The history is somewhat limited. The patient had a baby on 05/16. She had premature rupture of membranes at 32 weeks. She was kept in the hospital for 2 weeks at [facility]. She was delivered at 34 weeks. The patient was readmitted 1 day after she was discharged for endomyometritis. She was treated with antibiotics in the hospital for 2 days. I am not sure if she was sent home with oral antibiotics. (Some of the history is taken from all scripts) From what I can understand, her acute symptoms particularly chills and lower abdominal pain have been going on for at least one week. The patient was seen in the emergency department on 07/23. She was prescribed Cipro and Flagyl for possible endomyometritis and reportedly felt no better. She saw her DRESS CAP MAKER in the office yesterday. The patient was instructed to continue with the Cipro and Flagyl. She also was given doxycycline for full treatment of possible PID. The patient has been taking the medications as prescribed. The vomiting just started yesterday. She reports having a normal bowel movement yesterday. She is also complaining of lower abdominal pain and continued vaginal bleeding. She is unable to quantify this. The lower abdominal pain is constant and has been present for several months. She denies any other infectious etiology such as cough, sore throat or runny nose. She denies any urinary symptoms or flank pain. Past Medical/Surgical History Hypothyroidism Family History Diabetes mellitus Heart disease Hypertension Social History Smoking Status: Never Smoker Marital Status: Housing status: lives with significant other Occupational Status: unemployed Allergies Coded Allergies: Baclofen (Verified Allergy, Unknown, ITCHING AND RASH, 07/28/16) Carbamazepine (Verified Allergy, Unknown, RASH AND ITCHING, 07/28/16) Home Medications Scheduled Ciprofloxacin Hcl (Cipro), 500 MG PO BID Levothyroxine Sodium (Synthroid), 88 MCG PO DAILY Linaclotide (Linzess), 1 TAB PO DAILY Multivit/Min/Iron/Fol Ac/Pren ( Vitamin), 1 TAB PO DAILY Oyster Shell (Calcium), 500 MG PO DAILY Pantoprazole (Pantoprazole Sodium), 40 MG PO BID Polyethylene (Miralax), 17 GM PO HS Scheduled PRN Acetaminophen (Tylenol), 1,000 MG PO Q4 PRN for Pain or Fever Review of Systems 10 system review performed and negative unless noted in HPI or below Physical Exam Vital Signs Date Time Temp Pulse Resp B/P Pulse Ox O2 Delivery O2 Flow Rate FiO2 07/28/16 07:59 82 18 96/59 96 Room Air 07/28/16 06:03 66 16 108/57 97 Room Air 07/28/16 03:32 86 18 107/63 97 Room Air 07/28/16 02:56 61 20 114/56 96 Room Air 07/28/16 01:00 66 18 101/64 98 Room Air 07/28/16 00:08 36.6 65 18 116/73 98 Room Air General Appearance: + mild distress (drowsy. Tearful.) Head: normocephalic Eyes: EOMI, + pertinent finding (conjunctivae injected bilaterally.) ENT: + pertinent finding (oral mucosa dry) Neck: no JVD Respiratory/Chest: lungs clear Cardiovascular: regular rate, rhythm Abdomen/GI: normal bowel sounds, non tender, soft Extremities/Musculoskelatal: no calf tenderness, no pedal edema Skin: + rash (a few petechiae noted on the right upper arm.) Diagnostics Laboratory Results Results Past 24 Hours Test 07/28/16 00:45 07/28/16 00:51 07/28/16 01:27 Range/Units White Blood Count 8.67 4.8-10.8 K/uL Red Blood Count 4.62 4.2-5.4 M/uL Hemoglobin 13.8 12.0-16.0 g/dL Hematocrit 40.5 37-47 % Mean Corpuscular Volume 87.7 80-100 fL Mean Corpuscular Hemoglobin 29.9 25-34 pg Mean Corpuscular Hemoglobin Concent 34.1 32-36 g/dl Platelet Count 248 130-400 K/uL Mean Platelet Volume 9.9 7.4-10.4 fL Neutrophils (%) (Auto) 60.9 % Lymphocytes (%) (Auto) 28.4 % Monocytes (%) (Auto) 8.1 % Eosinophils (%) (Auto) 2.2 % Basophils (%) (Auto) 0.3 % Neutrophils # (Auto) 5.28 1.4-6.5 K/uL Lymphocytes # (Auto) 2.46 1.2-3.4 K/uL Monocytes # (Auto) 0.70 0.11-0.59 K/uL Eosinophils # (Auto) 0.19 0-0.5 K/uL Basophils # (Auto) 0.03 0-0.2 K/uL RDW Standard Deviation 39.9 36.4-46.3 fL RDW Coefficient of Variation 12.5 11.5-14.5 % Immature Granulocyte % (Auto) 0.1 % Immature Granulocyte # (Auto) 0.01 0.00-0.02 K/uL Erythrocyte Sedimentation Rate 12 0-21 mm/hr Sodium Level 143 136-145 mmol/L Potassium Level 4.0 3.5-5.1 mmol/L Chloride Level 110 98-107 mmol/L Carbon Dioxide Level 25 21-32 mmol/L Anion Gap 8.0 3-11 mmol/L Blood Urea Nitrogen 20 7-18 mg/dl Creatinine 1.20 0.60-1.20 mg/dl Est Creatinine Clear Calc Drug Dose 61.2 ml/min Estimated GFR () 66.9 Estimated GFR (Non- 57.7 BUN/Creatinine Ratio 16.3 10-20 Random Glucose 100 70-99 mg/dl Calcium Level 8.8 8.5-10.1 mg/dl C-Reactive Protein 1.38 0-0.29 mg/dl Thyroid Stimulating Hormone (TSH) 1.800 0.300-4.500 uIu/ml Free Thyroxine 1.28 0.80-1.60 ng/dl Human Chorionic Gonadotropin, Qual NEG NEG Bedside Lactic Acid Venous 0.51 0.90-1.70 mmol/L Urine Color YELLOW Urine Appearance CLEAR CLEAR Urine pH 5.0 4.5-7.5 Urine Specific [place] 1.007 1.000-1.030 Urine Protein NEG NEG Urine Glucose (UA) NEG NEG Urine Ketones NEG NEG Urine Occult Blood NEG NEG Urine Nitrite NEG NEG Urine Bilirubin NEG NEG Urine Urobilinogen NEG NEG Urine Leukocyte Esterase NEG NEG Urine WBC (Auto) 0 0-5 /hpf Urine RBC (Auto) 0-4 0-4 /hpf Urine Hyaline Casts (Auto) 0 0-5 /lpf Urine Epithelial Cells (Auto) 0-5 0-5 /lpf Urine Bacteria (Auto) NEG NEG Urine Test NEG NEG Microbiology Results 07/28/16 Blood Culture, Received Pending 07/28/16 Blood Culture, Received Pending Impression Assessment and Plan 35-year-old female presents emergency department with nausea, vomiting, chills and lower abdominal pain. Patient was recently put on antibiotics for possible recurrent endomyometritis. Chills/abd pain-possible endomyometritis-past visits reviewed. She did have Escherichia coli pansensitive on vaginal culture from her visit on 07/23. I personally reviewed the imaging. Moderate amount of stool could also be contributing to sx -Observe on medical floor -Cipro 400 mg IV BID -NS + 20 mEq KCl @ 125 cc/hr -Zofran and Tylenol prn -Consider pelvic ultrasound if no improvement -Morphine 2 mg IV every 4 hours as needed for pain -Miralax and docusate daily ?Some element of depression -Monitor for improvement Hypothyroidism -Continue Synthroid 88 g daily DVT prophylaxis -Teds, SCDs CODE STATUS -LEVEL I FULL CODE Level of Care Med/Surg Resuscitation Status FULL RESUSCITATION VTE Prophylaxis VTE Risk Assessment Done? Y/N: Yes Risk Level: Low Given or contraindicated: T.E.D. Stockings, SCD's Note Attending Attestation: Pt seen/examined, chart reviewed, care plan d/w MATTIE Ford. I agree w/ the saavedra components of her admission documentation. 35yo female, several months post- after having had a male , complicated by post-delivery endometritis - presenting with lower abdominal pain. W/u in the ER included a normal CT abd/pelvis, nl labs, and nl pelvic exam by ob /adhesive bonding machine operator. Her other complaints include chills for 1-2 days but no fever as well as constipation. She has taken linzess in the past for constipation w/ good relief. PMH, PSH, allergies, meds, sochx, famhx, ros - reviewed VSS no fever gen - NAD mouth - MMM neck - no lymph nodes heart - RRR, s1, s2 lungs - CTA b/l abd - minimal tenderness suprapubic region; BS+, ND, soft, no HSM ext - no edema CT abd/pelvis - normal labs all normal recent vaginal culture obtained in the outpatient clinic with pansens e. coli A/P: 1. recent endometritis 2. abdominal pain, lower 3. constipation 4. chills in the absence of fever or leukocytosis 5. hypothyroidism admit to observation status Rx the constipation fluids, IV cipro for e. coli in vaginal culture serial labs check random cortisol plan to resume linzess at time of discharge Cisco Grover MD
[2016-07-28] MEDS ORDERED: IV FLUIDS COMPLETED PRN (09:45)
[2016-07-28] MEDS: SODIUM CHLOR 0.45% + 20MEQ KCL 1,000 ML IV SCH ×2 (11:36→19:33)
[2016-07-28] MEDS: CIPROFLOXACIN / D5W 400 MG in PREMIXED IN D5W 200 ML IV SCH ×2 (12:36→23:52)
[2016-07-28] MEDS: LEVOTHYROXINE 88 MCG TAB PO SCH (12:36)
--- NOTE | 2016-07-28 12:49 | DIAGNOSTIC IMAGING REPORT ---
CT OF THE ABDOMEN AND PELVIS WITH CONTRAST CLINICAL HISTORY: Worsening abdominal pain and intractable vomiting. 2 weeks. COMPARISON STUDY: CT of the abdomen and pelvis July 23, 2016 TECHNIQUE: Following IV administration of 91 mL of Optiray-320, axial images of the abdomen and pelvis were obtained from the lung bases to the proximal femurs. Images were reviewed in the axial, sagittal, and coronal planes. IV contrast was administered without complication. CT DOSE: 442.48 mGy.cm FINDINGS: No pneumatosis, free air or portal venous gas is present. The liver, spleen, adrenal glands, kidneys and pancreas are normal. Several splenules are again noted. There is no biliary or pancreatic ductal dilatation. There is no free fluid. The appendix is surgically absent. There is no evidence for a bowel obstruction. There is a moderate amount of stool within the colon. The ovaries are not enlarged. No significant abdomen is identified within visualized skeletal structures. There is a small umbilical hernia. Major vasculature of the abdomen and pelvis is patent. IMPRESSION: 1. No acute process within the abdomen or pelvis. 2. Moderate amount of stool within the colon. No bowel obstruction. Electronically signed by: Walt You M.D. 07/28/2016 7:15 AM Dictated Date/Time: 07/28/2016 7:11 AM
[2016-07-28] MEDS ORDERED: DOCUSATE SODIUM 100 MG CAP PO SCH (21:00)
[2016-07-29] MEDS: SODIUM CHLOR 0.45% + 20MEQ KCL 1,000 ML IV SCH ×3 (03:30→19:30)
[2016-07-29] MEDS: LEVOTHYROXINE 88 MCG TAB PO SCH (05:39)
[2016-07-29 06:36] LABS: BASO % 0.3 %; BASO ABS # 0.02 K/uL (0-0.2); COMPLETE YES; EOS % 3.5 %; HEMATOCRIT 38.8 % (37-47); IG% 0.1 %; LYMPH % 33.9 %; LYMPH ABS # 2.49 K/uL (1.2-3.4); MEAN CELL VOLUME 88.6 fL (80-100); MEAN CORPUSCULAR HGB CONC 32.7 g/dl (32-36); MEAN PLATELET VOLUME 9.8 fL (7.4-10.4); MONO % 8.7 %; NEUT % 53.5 %; PLATELET COUNT 219 K/uL (130-400); RED BLOOD COUNT 4.38 M/uL (4.2-5.4); WHITE BLOOD COUNT 7.34 K/uL (4.8-10.8)
[2016-07-29 07:06] VITALS: BP 91/63; PULSE 60; TEMP 36.9; O2SAT 97
[2016-07-29 07:14] LABS: BUN/CREATININE RATIO 13.3 (10-20); CALCIUM 8.5 mg/dl (8.5-10.1); POTASSIUM 4.3 mmol/L (3.5-5.1)
[2016-07-29 08:00] VITALS: O2SAT 97
[2016-07-29 08:48] VITALS: BP 100/64; TEMP 36.5
[2016-07-29] MEDS ORDERED: DOCUSATE SODIUM 100 MG/10 ML UDC PO SCH (09:00)
[2016-07-29] MEDS ORDERED: PANTOprazole SOD 40 MG TAB PO ONE (10:00)
--- NOTE | 2016-07-29 11:13 | Hospitalist Progress Note ---
Hospitalist Progress Note Date of Service July 29, 2016. (Yakelin Ford PA-C) Subjective Pt evaluation today including: conversation w/ patient, conversation w/ family , physical exam, chart review, lab review, review of studies, conversation w/ it sales consultant, review of inpatient medication list Patient still reports feeling chills overnight. The abdominal pain in her lower abdomen is more intermittent and improved. She reports that the Colace is making her nauseated. She is also concerned that she was having very dark stools overnight. No bright red blood to her knowledge. She denies any vaginal bleeding. This stopped prior to arrival in the emergency department. Additional Comments: 6 system review negative. Please see pertinent positives in the history of present illness section. (Yakelin Ford PA-C) Objective Vital Signs Date Time Temp Pulse Resp B/P Pulse Ox O2 Delivery O2 Flow Rate FiO2 07/29/16 08:48 36.5 100/64 07/29/16 07:06 36.9 60 20 91/63 97 Room Air 07/29/16 00:00 Room Air 07/28/16 23:46 36.5 55 17 128/68 97 Room Air 07/28/16 16:00 98 Room Air 07/28/16 15:25 36.6 64 16 94/62 98 Room Air 07/28/16 13:30 105/68 07/28/16 11:29 96/63 (Yakelin Ford PA-C) Physical Exam General Appearance: no apparent distress Eyes: EOMI ENT: + pertinent finding (oral mucosa fairly moist) Neck: no JVD Respiratory/Chest: lungs clear Cardiovascular: regular rate, rhythm Abdomen: normal bowel sounds, non tender, soft Extremities: non-tender, no pedal edema Neurologic/Psychiatric: no motor/sensory deficits, oriented x 3 Skin: warm/dry (Yakelin Ford PA-C) Laboratory Results 07/29/16 06:06 Red Blood Count 4.38, Mean Corpuscular Volume 88.6, Mean Corpuscular Hemoglobin 29.0, Mean Corpuscular Hemoglobin Concent 32.7, Mean Platelet Volume 9.8, Neutrophils (%) (Auto) 53.5, Lymphocytes (%) (Auto) 33.9, Monocytes (%) (Auto) 8.7, Eosinophils (%) (Auto) 3.5, Basophils (%) (Auto) 0.3, Neutrophils # (Auto) 3.92, Lymphocytes # (Auto) 2.49, Monocytes # (Auto) 0.64, Eosinophils # (Auto) 0.26, Basophils # (Auto) 0.02 07/29/16 06:06 Test 07/29/16 06:06 07/29/16 09:10 White Blood Count 7.34 K/uL (4.8-10.8) Red Blood Count 4.38 M/uL (4.2-5.4) Hemoglobin 12.7 g/dL (12.0-16.0) Hematocrit 38.8 % (37-47) Mean Corpuscular Volume 88.6 fL (80-100) Mean Corpuscular Hemoglobin 29.0 pg (25-34) Mean Corpuscular Hemoglobin Concent 32.7 g/dl (32-36) Platelet Count 219 K/uL (130-400) Mean Platelet Volume 9.8 fL (7.4-10.4) Neutrophils (%) (Auto) 53.5 % Lymphocytes (%) (Auto) 33.9 % Monocytes (%) (Auto) 8.7 % Eosinophils (%) (Auto) 3.5 % Basophils (%) (Auto) 0.3 % Neutrophils # (Auto) 3.92 K/uL (1.4-6.5) Lymphocytes # (Auto) 2.49 K/uL (1.2-3.4) Monocytes # (Auto) 0.64 K/uL (0.11-0.59) Eosinophils # (Auto) 0.26 K/uL (0-0.5) Basophils # (Auto) 0.02 K/uL (0-0.2) RDW Standard Deviation 40.7 fL (36.4-46.3) RDW Coefficient of Variation 12.6 % (11.5-14.5) Immature Granulocyte % (Auto) 0.1 % Immature Granulocyte # (Auto) 0.01 K/uL (0.00-0.02) Anion Gap 5.0 mmol/L (3-11) Est Creatinine Clear Calc Drug Dose 73.2 ml/min Estimated GFR () 83.4 Estimated GFR (Non- 71.9 BUN/Creatinine Ratio 13.3 (10-20) Calcium Level 8.5 mg/dl (8.5-10.1) Magnesium Level 2.0 mg/dl (1.8-2.4) Stool Occult Blood POSITIVE (NEGATIVE) Last 24 Hours Test 07/29/16 06:06 07/29/16 09:10 White Blood Count 7.34 K/uL Red Blood Count 4.38 M/uL Hemoglobin 12.7 g/dL Hematocrit 38.8 % Mean Corpuscular Volume 88.6 fL Mean Corpuscular Hemoglobin 29.0 pg Mean Corpuscular Hemoglobin Concent 32.7 g/dl Platelet Count 219 K/uL Mean Platelet Volume 9.8 fL Neutrophils (%) (Auto) 53.5 % Lymphocytes (%) (Auto) 33.9 % Monocytes (%) (Auto) 8.7 % Eosinophils (%) (Auto) 3.5 % Basophils (%) (Auto) 0.3 % Neutrophils # (Auto) 3.92 K/uL Lymphocytes # (Auto) 2.49 K/uL Monocytes # (Auto) 0.64 K/uL Eosinophils # (Auto) 0.26 K/uL Basophils # (Auto) 0.02 K/uL RDW Standard Deviation 40.7 fL RDW Coefficient of Variation 12.6 % Immature Granulocyte % (Auto) 0.1 % Immature Granulocyte # (Auto) 0.01 K/uL Sodium Level 140 mmol/L Potassium Level 4.3 mmol/L Chloride Level 106 mmol/L Carbon Dioxide Level 29 mmol/L Anion Gap 5.0 mmol/L Blood Urea Nitrogen 13 mg/dl Creatinine 1.00 mg/dl Est Creatinine Clear Calc Drug Dose 73.2 ml/min Estimated GFR () 83.4 Estimated GFR (Non- 71.9 BUN/Creatinine Ratio 13.3 Random Glucose 95 mg/dl Calcium Level 8.5 mg/dl Magnesium Level 2.0 mg/dl Stool Occult Blood POSITIVE (Yakelin Ford, PA-C) Assessment and Plan 35-year-old female presents emergency department with nausea, vomiting, chills and lower abdominal pain. 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 Attempts were made to minimize the grammatical errors, random word insertions, pronoun errors and incomplete sentences. Any formal questions or concerns about the content, text or information contained within the body of this dictation should be directly addressed to the provider for clarification. (Yakelin Ford, PAMukulC) Attending Attestation: Pt seen/examined, chart reviewed, care plan d/w MATTIE Ford. I agree w/ the saavedra components of her documentation. No events overnight except pt reporting "dark" stool this am. Hemoccult was +. Abd pain is improved. No other new complaints. VSS no fever gen - nad abd - soft, NT, ND, BS+, no HSM blood cx's neg cbc x 2 today with NORMAL AND STABLE H/H A/P: ?ongoing endometritis - clinically improved; plan for 4 more days of cipro after discharge. abd pain - likely multifactorial - constipation +/- endometritis +/- gastritis - improved. d/c home with Rx for constipation (linzess), Rx for potential gastritis (PPI), Rx for endometritis (cipro). Heme+ stool - PPI, f/u with GI within 1 week; may need EGD. chills - unclear etiology - possibly related to residual endometritis?? blood cx's neg TSH/free T4 nl cortisol acceptable ok for d/c home f/u [facility] within 3-5 days Alvin GROVER MD (Cisco Grover MD)
[2016-07-29] MEDS: CIPROFLOXACIN / D5W 400 MG in PREMIXED IN D5W 200 ML IV SCH (12:09)
[2016-07-29 13:43] LABS: BASO % 0.4 %; BASO ABS # 0.03 K/uL (0-0.2); COMPLETE YES; EOS % 2.7 %; HEMATOCRIT 40.2 % (37-47); IG% 0.3 %; LYMPH % 34.8 %; LYMPH ABS # 2.71 K/uL (1.2-3.4); MEAN CELL VOLUME 88.2 fL (80-100); MEAN CORPUSCULAR HEMOGLOBIN 30.3 pg (25-34); MEAN CORPUSCULAR HGB CONC 34.3 g/dl (32-36); MEAN PLATELET VOLUME 9.7 fL (7.4-10.4); MONO % 7.6 %; NEUT % 54.2 %; PLATELET COUNT 266 K/uL (130-400); RED BLOOD COUNT 4.56 M/uL (4.2-5.4); WHITE BLOOD COUNT 7.78 K/uL (4.8-10.8)
[2016-07-29] MEDS ORDERED: MRLP17 PO (14:25)
[2016-07-29] MEDS ORDERED: PRT40 PO (14:25)
[2016-07-29] MEDS ORDERED: CIPR-255 PO (14:25)
[2016-07-29] MEDS ORDERED: LINA1CAP PO (14:25)
--- NOTE | 2016-07-29 14:45 | Discharge Instructions ---
Discharge Instructions Date of Service July 29, 2016. Admission Reason for Admission: Endomyometritis Discharge Discharge Diagnosis / Problem: chills, constipation Discharge Goals Goal(s): Decrease discomfort Activity Recommendations Activity Limitations: resume your previous activity . Instructions / Follow-Up Instructions / Follow-Up You had been treated in the hospital with complaints of chills and lower abdominal pain. It is unclear at this point where the chills are coming from. It does not appear that you have any infection in your uterus. It does appear per CAT scan imaging that you may have significant constipation. A vaginal culture was performed on the emergency room visit on 07/23/2016-this was positive for E coli, which is likely a normal variant. We will treat this prophylactically with an antibiotic The following changes/additions have been made to your medication list: -Ciprofloxacin 500 mg 1 tab twice daily for 4 days. Please try to nurse your baby right before taking this medication -Please stop taking ranitidine -Please begin pantoprazole 40 mg 1 tab twice daily for 2 weeks -Please begin Lynzess 1 TAB daily before your first meal -MiraLAX 1 packet daily for 2 weeks DO NOT TAKE ANY [id number] ANTI-INFLAMMATORY PILLS INCLUDING ASPIRIN, MOTRIN, IBUPROFEN, NAPROSYN, OR ALEVE. DO NOT DRINK ANY ALCOHOL. Please follow up with the following providers: -Gynecology within 1 week -Primary care physician within 3-5 days -Dr. Donis, assistant spa director, 1 week -Dr. Perez, chemical engineering intern, within 1 month Please return to the emergency department for any of the following symptoms: -Large amount of blood in stool -Severe abdominal pain -Fever of 101F or greater -Persistent vomiting -Severe vaginal bleeding of greater than 2 pads per hour Nothing in the vagina until seen by gynecology in follow-up Current Hospital Diet Patient's current hospital diet: Regular Diet Discharge Diet Recommended Diet: Regular Diet Procedures Procedures Performed: CAT SCAN OF THE ABDOMEN AND PELVIS - NORMAL EXCEPT FOR CONSTIPATION. Pending Studies Studies pending at discharge: no Medical Emergencies . Who to Call and When: Medical Emergencies: If at any time you feel your situation is an emergency, please call 911 immediately. . Non-Emergent Contact Non-Emergency issues call your: Primary Care Provider Call Non-Emergent contact if: temperature is above 100.5, your pain is not controlled, your pain is worsening, your pain is unusual for you, your pain is concerning you, you have any medication questions . . "Provider Documentation" section prepared by Yakelin Ford. . VTE Core Measure Inpt VTE Proph given/why not?: Cole Watkins, SCD's
[2016-07-29 15:16] VITALS: BP 104/70; PULSE 77; TEMP 36.9; O2SAT 96
[2016-07-29 18:50] VITALS: BP 104/70; PULSE 77; TEMP 36.9; O2SAT 96
[2016-07-29] MEDS ORDERED: PANTOprazole SOD 40 MG TAB PO SCH (21:00)
--- NOTE | 2016-07-30 09:18 | Discharge Summary ---
Discharge Summary Date of Service July 30, 2016. Discharge Summary Admission Date: July 28, 2016 at 09:05 Discharge Date: July 29, 2016 Discharge Disposition: Home Principal Diagnosis: abdominal pain - likely multifactorial Problems/Secondary Diagnoses: 1. possible endometritis 2. probable gastritis, due to doxycycline? 3. heme+ stool 4. constipation 5. hypothyroidism Procedures: CT abd/pelvis - normal, no acute pathology Consultations: fishing tackle repairer Medication Reconciliation New Medications: Linaclotide (Linzess) 145 Mcg Cap 1 TAB PO DAILY for 30 Days, #30 TAB Pantoprazole (Pantoprazole Sodium) 40 Mg Tab 40 MG PO BID for 14 Days, #28 TAB Polyethylene (Miralax) 17 Gm Pow 17 GM PO HS for 14 Days, #14 DOSE Continued Medications: Acetaminophen (Tylenol) 500 Mg Tab 1000 MG PO Q4 PRN for Pain or Fever, TAB Ciprofloxacin Hcl (Cipro) 500 Mg Tab 500 MG PO BID for 4 Days, #8 TAB (This prescription has been renewed) Levothyroxine Sodium (Synthroid) 88 Mcg Tab 88 MCG PO DAILY, TAB Multivit/Min/Iron/Fol Ac/Pren ( Vitamin) Tab 1 TAB PO DAILY, TAB Oyster Shell (Calcium) 500 Mg Tab 500 MG PO DAILY Discontinued Medications: Doxycycline Hyclate (Vibramycin) 100 Mg Cap 100 MG PO BID, #14 Metronidazole (Flagyl) 500 Mg Tab 500 MG PO TID for Pain for 7 Days, #21 TAB For Initial Treatment Naproxen (Naprosyn) 500 Mg Tab 500 MG PO BID PRN for Pain for 14 Days, #28 TAB Ranitidine (Zantac) 150 Mg Tab 150 MG PO BID PRN for Nausea, TAB Referrals At Discharge Follow up Referrals: Motors And Generators Inspector Referral - Within a Month with Phong Perez M.D. Golf Sales Associate Referral - Within 1 Week with Santana Donis D.O. Wharf Laborer Referral - Within 1 Week with Néstor Quintanilla M.D. Physician Referral - Within 1 Week with Lizzeth Cunningham PA-C Discharge Exam Physical Exam: General Appearance: WD/WN, no apparent distress ENT: pharynx normal Neck: no adenopathy, no JVD Respiratory/Chest: lungs clear, no respiratory distress, no accessory muscle use Cardiovascular: regular rate, rhythm, no gallop, no murmur, normal peripheral pulses Abdomen / GI: normal bowel sounds, non tender, soft, no organomegaly Extremities: no pedal edema Neurologic/Psychiatric: alert, oriented x 3 Skin: no rash Hospital Course HISTORY OF PRESENT ILLNESS: This patient is a 35-year-old female, miscarriage 2, that presents the emergency department complaining of lower abdominal discomfort, nausea, vomiting and chills. The patient is primarily luxembourgish speaking. She declined using a translation service. The history is somewhat limited. The patient had a baby on 05/16. She had premature rupture of membranes at 32 weeks. She was kept in the hospital for 2 weeks at [facility]. She was delivered at 34 weeks. The patient was readmitted 1 day after she was discharged for endomyometritis. She was treated with antibiotics in the hospital for 2 days. I am not sure if she was sent home with oral antibiotics. (Some of the history is taken from [facility] outpatient record) From what I can understand, her acute symptoms particularly chills and lower abdominal pain have been going on for at least one week. The patient was seen in the emergency department on 07/23. She was prescribed Cipro and Flagyl for possible endomyometritis and reportedly felt no better. She saw her HAND GLUER AND SLICER in the office yesterday. The patient was instructed to continue with the Cipro and Flagyl. She also was given doxycycline for full treatment of possible PID. The patient has been taking the medications as prescribed. The vomiting just started yesterday. She reports having a normal bowel movement yesterday. She is also complaining of lower abdominal pain and continued vaginal bleeding. She is unable to quantify this. The lower abdominal pain is constant and has been present for several months. She denies any other infectious etiology such as cough, sore throat or runny nose. She denies any urinary symptoms or flank pain. HOSPITAL COURSE: The patient was admitted for observation. Her abdominal pain quickly improved. She was placed on IV cipro for the possibility of ongoing endometritis (recent vaginal culture from the [facility] fishing tackle repairer office showed sandoval-sensitive e. coli) . Constipation was treated and improved. Blood cultures remained negative while here. All blood work including TSH, free T4, CBC, chemistries, and cortisol level were normal. On hospital day #2 the patient reported a dark-appearing stool. Hemoccult was positive. Despite such an additional cbc showed stable H/H. PPI was begun in the event she had gastritis or esophagitis from recent doxycycline use. The patient will discharge home with the following - 1. PPI twice daily for possible gastritis/esophagitis 2. cipro x 4 additional days 3. linzess and miralax for constipation Other recommendations at discharge - 1. GI follow-up with Dr. Santana Donis for consideration of EGD 2. PCP follow-up for care management 3. [place] follow-up for pelvic complaints and question of endometritis Lastly, the patient complained of chills throughout her stay but again her blood cultures were negative and endocrine work-up was normal. Unclear if the chills was related to her endometritis or some other process. She apparently has outpatient follow-up arranged with hematology/oncology for additional work-up. Total Time Spent: Greater than 30 minutes This includes examination of the patient, discharge planning, medication reconciliation, and communication with other providers. Discharge Instructions Please refer to the electronic Patient Visit Report (Discharge Instructions) for additional information. Follow-Up 1. see MATTIE Briggs - within 3-5 days (patient to arrange follow-up at her request) 2. see Dr. Santana Donis, [facility], within 1 week 3. follow-up [facility] fishing tackle repairer within 1-2 weeks Additional Copies To Santana Donis D.O.; Lizzeth Cunningham PA-C; [facility]
[2016-12-03] MEDS ORDERED: TIZA4CAP PO (10:53)
[2016-12-03] MEDS ORDERED: MULT-506 PO (10:53)
[2016-12-03] MEDS ORDERED: CEPH500C2 PO (10:53)
== END 2016-07-29 19:45 | disposition home or self-care (01) ==
LOC: ENRESERVTM → ENRESERVDT → C.EDB 00:04 → C.MS2W 09:05
PROVIDERS: ADMIT Internal Medicine; ATTEND Internal Medicine
DX: R10.30 Lower abdominal pain, unspecified (principal); K92.1 Melena; K59.00 Constipation, unspecified; R11.0 Nausea; R68.83 Chills (without fever); E03.9 Hypothyroidism, unspecified; Z83.3 Family history of diabetes mellitus; Z82.49 Family history of ischemic heart disease and other diseases of the circulatory system

== ENCOUNTER → 2016-09-23 | Outpatient (CLI) | payer OTHER ==
[~2016-09-23] MED LIST changes: +ACET-1256 PO; +CEPH500C2 PO; +LINA1CAP PO; -METR-163 PO; +MRLP17 PO; +MULT-506 PO; -NAPR-1169 PO; +PRT40 PO; +TIZA4CAP PO
--- NOTE | 2016-09-23 21:23 | DIAGNOSTIC IMAGING REPORT ---
MRI OF THE CERVICAL SPINE WITHOUT CONTRAST CLINICAL HISTORY: NECK PAIN UNRESPONSIVE TO PT OR MEDS COMPARISON: Neck CT June 01, 2014. TECHNIQUE: Utilizing a 1.5 Mackenzie magnet and dedicated coil, multiplanar, multiecho imaging of the cervical spine was performed without IV contrast. FINDINGS: Alignment of the cervical spine is anatomic. Vertebral body heights are maintained. Cervical cord signal and caliber are normal. There is no intracanalicular mass or fluid collection. Paravertebral soft tissues are unremarkable. C2-C3: The central canal and the neural foramen are patent. C3-C4: The central canal and neural foramen are patent. C4-C5: There is a tiny central disc protrusion. The central canal and neural foramen are patent. C5-C6: The central canal and neural foramen are patent. C6-C7: There is a tiny central disc protrusion. The central canal and neural foramen are patent. C7-T1: The central canal and neural foramen are patent. IMPRESSION: 1. Normal cervical cord signal and caliber. 2. Minimal multilevel degenerative disc disease of the cervical spine. A few tiny disc protrusions without significant central canal and neural foraminal stenosis. Electronically signed by: Walt You M.D. 09/23/2016 9:21 PM Dictated Date/Time: 09/23/2016 9:16 PM
== END | disposition home or self-care (01) ==
LOC: C.MRI 17:31
PROVIDERS: ATTEND Family Medicine
DX: M54.2 Cervicalgia (principal)

== ENCOUNTER → 2017-07-28 | Outpatient (CLI) | payer OTHER ==
[~2017-07-28] MED LIST changes: -ACET-1256 PO; -CIPR-255 PO; +GADAVIST IV PRN; -LINA1CAP PO; -MRLP17 PO; -OYST500T47 PO; -PRENTAB26 PO; -PRT40 PO
--- NOTE | 2017-07-28 20:23 | DIAGNOSTIC IMAGING REPORT ---
BRAIN COMBO CLINICAL HISTORY: 36 years-old Female presenting with DOUBLE VISION, WEAKNESS OF ARMS AND LEGS, no history of trauma, posterior headache, blurred vision, weakness and dizziness, symptoms began one year ago. TECHNIQUE: Multisequence, multiplanar MR imaging of the brain was performed before and after the administration of intravenous contrast. IV contrast: 6.5 mL of Gadavist. COMPARISON: 07/20/2014. FINDINGS: Ventricles and sulci normal in size. Brain parenchyma normal in appearance with preserved moreno-white differentiation. No mass effect or midline shift. No restricted diffusion to suggest acute ischemia. No hemorrhage. No extra-axial fluid collection. T2 skull base flow voids preserved. No abnormal parenchymal enhancement. Bone marrow signal intensity within the calvarium within normal limits. Fluid noted in the left mastoid air cells, unchanged. IMPRESSION: 1. No acute intracranial pathology. No abnormal enhancement. Electronically signed by: Osvaldo Rizvi M.D. 07/28/2017 8:21 PM Dictated Date/Time: 07/28/2017 8:16 PM
== END | disposition home or self-care (01) ==
LOC: C.MRI 19:13
PROVIDERS: ATTEND Physician Assistant Medical
DX: R29.898 Other symptoms and signs involving the musculoskeletal system (principal); H53.2 Diplopia

== ENCOUNTER 2017-10-27 13:12 | Emergency (ER) | payer OTHER ==
[~2017-10-27] VITALS: Ht 160 cm; Wt 67.2 kg
[~2017-10-27 13:12] MED LIST changes: -GADAVIST IV PRN
[2017-10-27 13:22] VITALS: TEMP 36.7; Ht 160 cm; Wt 67.2 kg
[2017-10-27] MEDS ORDERED: KETOROLAC TROMETHAMINE 30 MG/ML VIAL IV STA (13:52)
[2017-10-27] MEDS ORDERED: FAMOTIDINE 20MG/5ML IV PUSH IV STA (13:52)
[2017-10-27 14:13] LABS: BASO % 0.5 %; BASO ABS # 0.03 K/uL (0-0.2); EOS % 2.4 %; EOS ABS # 0.13 K/uL (0-0.5); HEMATOCRIT 41.9 % (37-47); HEMOGLOBIN 13.9 g/dL (12.0-16.0); IG# 0.01 K/uL (0.00-0.02); LYMPH % 33.3 %; LYMPH ABS # 1.84 K/uL (1.2-3.4); MEAN CELL VOLUME 88.4 fL (80-100); MEAN CORPUSCULAR HEMOGLOBIN 29.3 pg (25-34); MEAN CORPUSCULAR HGB CONC 33.2 g/dl (32-36); MEAN PLATELET VOLUME 10.4 fL (7.4-10.4); MONO % 8.1 %; MONO ABS # 0.45 K/uL (0.11-0.59); NEUT % 55.5 %; NEUT ABS # 3.07 K/uL (1.4-6.5); PLATELET COUNT 249 K/uL (130-400); RED CELL DISTRIBUTION WIDTH CV 12.8 % (11.5-14.5); RED CELL DISTRIBUTION WIDTH SD 41.3 fL (36.4-46.3); WHITE BLOOD COUNT 5.53 K/uL (4.8-10.8)
--- NOTE | 2017-10-27 14:21 | DIAGNOSTIC IMAGING REPORT ---
SINGLE VIEW CHEST CLINICAL HISTORY: Atypical chest pain. FINDINGS: An AP, portable, upright chest radiograph is compared to study dated 07/23/2016. The cardiomediastinal silhouette is unremarkable. The lungs and pleural spaces are clear. No pneumothorax is seen. The bony thorax is grossly intact. IMPRESSION: No active disease in the chest. Electronically signed by: Herbert Smyth M.D. 10/27/2017 2:19 PM Dictated Date/Time: 10/27/2017 2:19 PM
[2017-10-27 14:26] LABS: PTT PATIENT 24.7 SECONDS (21.0-31.0)
[2017-10-27] MEDS ORDERED: GABA-1220 PO (14:36)
[2017-10-27] MEDS ORDERED: AMT/25 PO (14:36)
[2017-10-27 14:47] LABS: ALBUMIN 3.8 gm/dl (3.4-5.0); ALKALINE PHOSPHATASE 50 U/L (45-117); ALT/SGPT 30 U/L (12-78); AST/SGOT 19 U/L (15-37); BLOOD UREA NITROGEN 15 mg/dl (7-18); CALCIUM 8.5 mg/dl (8.5-10.1); CARBON DIOXIDE 26 mmol/L (21-32); CREATININE 0.84 mg/dl (0.60-1.20); GLUCOSE 92 mg/dl (70-99); LIPASE 193 U/L (73-393); POTASSIUM 3.9 mmol/L (3.5-5.1); SODIUM 138 mmol/L (136-145); TOTAL PROTEIN 7.1 gm/dl (6.4-8.2)
[2017-10-27 14:50] VITALS: BP 122/69; PULSE 64; O2SAT 97
--- NOTE | 2017-10-27 18:14 | EMERGENCY ROOM VISIT NOTE ---
History Report prepared by Ciera: Jennifer Jones Under the Supervision of: Dr. Triston Holt M.D. First contact with patient: 13:43 Chief Complaint: CHEST PAIN Stated Complaint: CHEST PAIN History of Present Illness The patient is a 36 year old female who presents to the Emergency Room with complaints of waxing and waning chest pain that onset 1 month ago. The patient states that she had an appointment with the [facility] and was referred here for her complaint of chest pain. The patient notes the pain is in the center of her chest and radiates up into her right shoulder. She notes that his pain has been worsening over the past 3 days. She describes this as a tearing pain. She notes that the pain worsens with arm movement and when she pushes on her sternum. The patient complains of bruises on her arms and legs that has been occurring for over a month. The patient denies abdomen pain, breast lumps, recent falls, and shortness of breath. The patient states that she has a history of cartilage in her chest that occurred 1 year ago.The patient notes that she has chronic neck muscle pain and muscle spasms. She notes that she has low vitamin D and calcium. The patient denies smoking. The patient states her mother of cancer and that her sister was recently diagnosed with cancer. She notes that she does not have a family history of lupus. Source of History: patient Onset: 1 month ago Position: chest Timing: waxes/wanes Modifying Factors (Worsening): movement (arm movement), other (touching the sternum ) Associated Symptoms: No SOB, No abdominal pain Note: The patient complains of bruising on her arms and legs. The patient denies breast lumps or recent falls. Review of Systems See HPI for pertinent positives and negatives. A total of ten systems were reviewed and were otherwise negative. Past Medical & Surgical Medical Problems: (1) CMV (cytomegalovirus infection) (2) Endomyometritis (3) (4) premature rupture of membranes (PPROM) with unknown onset of labor (5) Toxoplasmosis Family History Diabetes mellitus Heart disease Hypertension Social History Smoking Status: Never Smoker Marital Status: Housing Status: lives with family Occupation Status: unemployed Current/Historical Medications Scheduled Amitriptyline HCl (Amitriptyline HCl), 25 MG PO HS Gabapentin (Neurontin), 400 MG PO TID Multivitamin (Multivitamin), 1 TAB PO DAILY Allergies Coded Allergies: Baclofen (Verified Allergy, Unknown, ITCHING AND RASH, 10/27/17) Carbamazepine (Verified Allergy, Unknown, RASH AND ITCHING, 10/27/17) Physical Exam Vital Signs Date Time Temp Pulse Resp B/P (MAP) Pulse Ox O2 Delivery O2 Flow Rate FiO2 10/27/17 14:50 64 18 122/69 97 Room Air 10/27/17 13:49 88 10/27/17 13:40 Room Air 10/27/17 13:22 36.7 75 20 130/84 97 Room Air Physical Exam GENERAL: Awake, alert, well-appearing, in no distress HENT: Normocephalic, atraumatic. Oropharynx unremarkable. EYES: Normal conjunctiva. Sclera non-icteric. NECK: Supple. No nuchal rigidity. RESPIRATORY: Clear to auscultation. No wheezes. Normal respiratory effort. CHEST: Mid sternal chest wall tenderness. Pain with upper extremity range of motion in middle chest. CARDIAC: Normal rate. Normal rhythm. Extremities warm and well perfused. GI: Soft, non-distended. No tenderness to palpation. No rebound or guarding. No masses. RECTAL: Deferred. MUSCULOSKELETAL: Atraumatic. Chest examination reveals no tenderness. There is no CVA tenderness to palpation. LOWER EXTREMITIES: Calves are equal size bilaterally and non-tender. No edema NEURO: Normal sensorium. No sensory or motor deficits noted. No facial droop. SKIN: Warm and dry. No rash or jaundice noted. Varicose veins in lower extremity with small areas of scattered bruising. No purpura. Medical Decision & Procedures ER Provider Diagnostic Interpretation: Radiology results as stated below per my review and radiologist interpretation: SINGLE VIEW CHEST CLINICAL HISTORY: Atypical chest pain. FINDINGS: An AP, portable, upright chest radiograph is compared to study dated 07/23/2016. The cardiomediastinal silhouette is unremarkable. The lungs and pleural spaces are clear. No pneumothorax is seen. The bony thorax is grossly intact. IMPRESSION: No active disease in the chest. Electronically signed by: Herbert Smyth M.D. 10/27/2017 2:19 PM Dictated Date/Time: 10/27/2017 2:19 PM Laboratory Results 10/27/17 14:05 Red Blood Count 4.74, Mean Corpuscular Volume 88.4, Mean Corpuscular Hemoglobin 29.3, Mean Corpuscular Hemoglobin Concent 33.2, Mean Platelet Volume 10.4, Neutrophils (%) (Auto) 55.5, Lymphocytes (%) (Auto) 33.3, Monocytes (%) (Auto) 8.1, Eosinophils (%) (Auto) 2.4, Basophils (%) (Auto) 0.5, Neutrophils # (Auto) 3.07, Lymphocytes # (Auto) 1.84, Monocytes # (Auto) 0.45, Eosinophils # (Auto) 0.13, Basophils # (Auto) 0.03 10/27/17 14:05 Test 10/27/17 14:05 White Blood Count 5.53 K/uL (4.8-10.8) Red Blood Count 4.74 M/uL (4.2-5.4) Hemoglobin 13.9 g/dL (12.0-16.0) Hematocrit 41.9 % (37-47) Mean Corpuscular Volume 88.4 fL (80-100) Mean Corpuscular Hemoglobin 29.3 pg (25-34) Mean Corpuscular Hemoglobin Concent 33.2 g/dl (32-36) Platelet Count 249 K/uL (130-400) Mean Platelet Volume 10.4 fL (7.4-10.4) Neutrophils (%) (Auto) 55.5 % Lymphocytes (%) (Auto) 33.3 % Monocytes (%) (Auto) 8.1 % Eosinophils (%) (Auto) 2.4 % Basophils (%) (Auto) 0.5 % Neutrophils # (Auto) 3.07 K/uL (1.4-6.5) Lymphocytes # (Auto) 1.84 K/uL (1.2-3.4) Monocytes # (Auto) 0.45 K/uL (0.11-0.59) Eosinophils # (Auto) 0.13 K/uL (0-0.5) Basophils # (Auto) 0.03 K/uL (0-0.2) RDW Standard Deviation 41.3 fL (36.4-46.3) RDW Coefficient of Variation 12.8 % (11.5-14.5) Immature Granulocyte % (Auto) 0.2 % Immature Granulocyte # (Auto) 0.01 K/uL (0.00-0.02) Prothrombin Time 10.2 SECONDS (9.0-12.0) Prothromb Time International Ratio 1.0 (0.9-1.1) Activated Partial Thromboplast Time 24.7 SECONDS (21.0-31.0) Partial Thromboplastin Ratio 1.0 Anion Gap 6.0 mmol/L (3-11) Est Creatinine Clear Calc Drug Dose 83.6 ml/min Estimated GFR () 102.2 Estimated GFR (Non- 88.2 BUN/Creatinine Ratio 17.3 (10-20) Calcium Level 8.5 mg/dl (8.5-10.1) Total Bilirubin 0.9 mg/dl (0.2-1) Direct Bilirubin 0.2 mg/dl (0-0.2) Aspartate Amino Transf (AST/SGOT) 19 U/L (15-37) Alanine Aminotransferase (ALT/SGPT) 30 U/L (12-78) Alkaline Phosphatase 50 U/L (45-117) Troponin I < 0.015 ng/ml (0-0.045) Total Protein 7.1 gm/dl (6.4-8.2) Albumin 3.8 gm/dl (3.4-5.0) Lipase 193 U/L (73-393) Thyroid Stimulating Hormone (TSH) 2.780 uIu/ml (0.300-4.500) Laboratory results reviewed by me Medications Administered Medications (Trade) Dose Ordered Sig/Kaur Route Start Time Stop Time Status Last Admin Dose Admin Ketorolac Tromethamine (Toradol Inj) 15 mg NOW STAT IV 10/27/17 13:52 10/27/17 13:53 DC 10/27/17 14:09 15 MG Famotidine (Pepcid 20mg Iv Push) 20 mg ONE STAT IV 10/27/17 13:52 10/27/17 13:53 DC 10/27/17 14:09 20 MG ECG Per My Interpretation Indication: chest pain Rate (beats per minute): 63 Rhythm: normal sinus Findings: other (normal interval axis, no ST segment elevation) ED Course 1343: The patient was evaluated in room B11B. A complete history and physical exam was performed. 1352: Ordered Toradol Inj 15 mg IV, Famotidine 20 mg IV. 1454: I reevaluated the patient. Discussed results and discharge instructions: she verbalized understanding and agreement. The patient is ready for discharge. Medical Decision Differential diagnosis: Etiologies such as cardiac ischemia, aortic dissection, pulmonary embolism, pneumonia, pneumothorax, musculoskeletal, infections, pericarditis, myocarditis , esophageal rupture, gastrointestinal, as well as others were entertained. Patient presents with 1 month of intermittent midsternal chest pain to the right shoulder worse over the past 3 days. No shortness of breath. No trauma. History of costochondritis. Has not tried any medications. Primary doctor referred here for evaluation. His multiple other complaints including months of some intermittent scattered easy bruising and recent family diagnosis of breast cancer making her concerned. She denies any breast lumps. Denies abdominal pain or nausea. Does not seem like a PE based on PERC criteria. Doubt dissection. Seems easily reproducible consistent with costochondritis muscular skeletal chest pain. EKG is unremarkable troponin is negative. Laboratory studies to exclude from a cytopenia or coagulopathy were completed. No acute evidence of this. Laboratory studies also do not show any evidence of electrolyte or kidney dysfunction. Given Toradol and Pepcid to help with symptoms. Improvement recommend she use [id number] pain medicine stress Motrin and Tylenol and recommend outpatient follow-up with her regular doctor. Feel she is stable for discharge. Discussed return precautions. Medication Reconcilliation Current Medication List: was personally reviewed by me Blood Pressure Screening Patient's blood pressure: Normal blood pressure Impression Primary Impression: Acute costochondritis Scribe Attestation The scribe's documentation has been prepared under my direction and personally reviewed by me in its entirety. I confirm that the note above accurately reflects all work, treatment, procedures, and medical decision making performed by me. Departure Information Dispostion Home / Self-Care Referrals [facility] (PCP) Forms Call Back Authorization, HOME CARE DOCUMENTATION FORM, IMPORTANT VISIT INFORMATION Patient Instructions My [facility] Additional Instructions Please continue maintain hydration and utilize Tylenol or Motrin for pain complaints. If you develop significantly worsening pain or other new or concerning symptoms please feel free to return here for reevaluation. Would recommend you see your regular doctor within 1-2 weeks for continued preventative care and follow-up of your musculoskeletal chest wall pain.
== END 2017-10-27 15:12 | disposition home or self-care (01) ==
LOC: C.EDB 13:13
DX: M94.0 Chondrocostal junction syndrome [Tietze] (principal); B25.9 Cytomegaloviral disease, unspecified; B58.9 Toxoplasmosis, unspecified; Z88.8 Allergy status to other drugs, medicaments and biological substances

== ENCOUNTER → 2017-11-05 | Outpatient (CLI) | payer OTHER ==
[~2017-11-05] MED LIST changes: +AMT/25 PO; -CEPH500C2 PO; +GABA-1220 PO; -LEVO88TA PO; -TIZA4CAP PO
--- NOTE | 2017-11-09 06:59 | MAMMOGRAPHY REPORT ---
BILATERAL DIGITAL SCREENING MAMMOGRAM TOMOSYNTHESIS WITH CAD: 11/05/2017 CLINICAL HISTORY: Routine screening. The patient reported to the technologist that she has right-side d chest discomfort extending into the upper breast area. TECHNIQUE: The study was acquired using full field digital technology and interpreted from soft copy. Breast tomosynthesis in addition to standard 2D mammography was performed. Current study was also ev aluated with a Computer Aided Detection (CAD) system. COMPARISON: Comparison is made to exams dated: 08/16/2014 mammogram and 08/16/2014 ultrasound - [facility]. BREAST COMPOSITION: The tissue of both breasts is heterogeneously dense, which may obscure small mass es. FINDINGS: No suspicious masses, calcifications, or areas of architectural distortion are noted in either breast . There has been no significant interval change compared to prior exam. IMPRESSION: ACR BI-RADS CATEGORY 2: BENIGN There is no mammographic evidence of malignancy. A 1 year screening mammogram is recommended.( 019) Also recommend clinical follow-up for right chest/breast discomfort. The patient will receive w ritten notification of the results. Some breast cancers are not detected with mammography. A negative mammographic report should not nani y biopsy if a clinically suggestive mass is present. Nichole Dunham M.D. ah/:11/05/2017 15:31:37 Scholarship Counselor: RT Bob(Arabella)(M), [facility] letter sent: Normal 1/2 BI-RADS Code: ACR BI-RADS Category 2: Benign
== END | disposition home or self-care (01) ==
LOC: C.MAMM 09:01
PROVIDERS: ATTEND Physician Assistant
DX: Z12.31 Encounter for screening mammogram for malignant neoplasm of breast (principal)